=== PATIENT | male | born 1955 | race African-American/Black ===

== ENCOUNTER 2018-09-20 11:23 | Inpatient (IN) ==
[2018-09-20] MEDS ORDERED: LABETALOL 20 MG/4 ML SYRINGE IV STA (13:14)
[2018-09-20] MEDS ORDERED: LABETALOL 100 MG/20 ML VIAL IV ONE (13:43)
[2018-09-20 14:08] LABS: Basophils # 0.1 10*3/uL (0.0-0.2); Basophils % 0.5 % (0.0-0.8); Eosinophils # 0.1 10*3/uL (0.0-0.87); Eosinophils % 1.2 % (0.00-10.9); Hemoglobin 14.1 GM/DL (14.0-18.0); Immature Granulocytes % 0.5 %; Immature Granulocytes Absolute 0.05 #; Lymphocytes % 29.8 % (21.2-54.2); Mean Corpuscular HGB Conc 31.3 GM/DL (32-36); Mean Corpuscular Volume 83.8 FL (87-102); Mean Platelet Volume 11.5 FL (9.6-12.0); Monocytes % 6.5 % (1.7-12.7); Neutrophils % 61.5 % (38.7-73.9); Platelet Count 296 T/CUMM (130-400); Red Blood Count 5.37 MC/CUMM (3.8-5.5); Red Cell Distribution Width 14.2 % (9.3-17.3); White Blood Count 9.9 T/CUMM (4-12)
[2018-09-20 14:32] LABS: Calcium 7.1 MG/DL (8.5-10.1); Osmolality,Calculated 299.5 MOS/KG (273-304)
[2018-09-20] MEDS ORDERED: cloNIDine 0.1 MG TABLET ONE (15:04)
[2018-09-20] MEDS ORDERED: cloNIDine 0.1 MG TABLET PO STA (15:07)
[2018-09-20] MEDS ORDERED: LACTATED RINGERS 500 ML IV ONE (16:33)
[2018-09-20] MEDS ORDERED: INSULIN REGULAR 100 UNIT/ML IV ONE (16:35)
[2018-09-20] MEDS ORDERED: INSULIN REGULAR 100 UNIT/ML ONE (16:46)
[2018-09-20 16:48] LABS: Alanine Aminotransferase 23 U/L (16-61); Albumin 3.1 G/DL (3.4-5.0); Alkaline Phosphatase 148 U/L (45-117); Aspartate Amino Transferase 18 U/L (0-37); Bilirubin,Total < 0.39 MG/DL (0.2-1.0); Blood Urea Nitrogen 43 MG/DL (7-18); Glucose 327 MG/DL (74-106); Osmolality,Calculated 304.3 MOS/KG (273-304); Total Protein 7.3 G/DL (6.4-8.3)
[2018-09-20 17:33] LABS: Apearance,Urine CLEAR (Clear); Bacteria,Urine Occasional /HPF (Few); Bilirubin,Urine Negative (Negative); Blood, Urine Small mg/dL (Negative); Glucose,Urine (UA) >=500 mg/dL (Negative); Ketones,Urine Negative (Negative); Nitrite,Urine Negative (Negative); Protein,Urine 100 MG/DL; RBC,Urine 2 /HPF (0-4); Urine Color Straw (Yellow); Urine Urobilinogen < 2.0 EU/DL (0.2-1.0)
[2018-09-20] MEDS ORDERED: DEXTROSE 50% 25 GM/50 ML VIAL IV PRN (17:37)
[2018-09-20] MEDS ORDERED: ONDANSETRON 4 MG/2 ML VIAL IV PRN (17:37)
[2018-09-20] MEDS ORDERED: ACETAMINOPHEN 325 MG TABLET PO PRN (17:37)
[2018-09-20] MEDS ORDERED: GLUCAGON 1 MG VIAL IM PRN (17:37)
[2018-09-20] MEDS ORDERED: MAGNESIUM HYDROXIDE SUSP 30 ML UDCUP PO PRN (17:37)
[2018-09-20] MEDS ORDERED: CALCIUM GLUCONATE 1,000 MG in SODIUM CHLORIDE 0.9% 100 ML IV ONE (17:50)
[2018-09-20 18:01] LABS: Barbiturates Screen,Urine Negative (Negative); Benzodiazepines Screen,Urine Negative (Negative); Cannabinoid Screen,Urine Negative (Negative); Opiate Screen,Urine Negative (Negative); Phencyclidine Screen,Urine Negative (Negative)
[2018-09-20] MEDS ORDERED: CALCIUM (CITRATE) 200 MG TABLET PO SCH (21:00)
[2018-09-20] MEDS: DOCUSATE SODIUM 100 MG CAPSULE PO SCH (21:38)
[2018-09-20] MEDS: INSULIN REGULAR 100 UNIT/ML SUBCUT SCH (22:16)
[2018-09-21 03:34] LABS: Basophils # 0.1 10*3/uL (0.0-0.2); Basophils % 0.8 % (0.0-0.8); Eosinophils # 0.1 10*3/uL (0.0-0.87); Eosinophils % 1.5 % (0.00-10.9); Hematocrit 45.1 VOL% (42.0-52.0); Hemoglobin 14.3 GM/DL (14.0-18.0); Immature Granulocytes % 0.1 %; Immature Granulocytes Absolute 0.01 #; Lymphocytes # 2.3 10*3/uL (1.4-4.0); Lymphocytes % 29.9 % (21.2-54.2); Mean Corpuscular HGB Conc 31.7 GM/DL (32-36); Mean Corpuscular Volume 83.5 FL (87-102); Mean Platelet Volume 11.9 FL (9.6-12.0); Monocytes % 8.1 % (1.7-12.7); Neutrophils % 59.6 % (38.7-73.9); Platelet Count 292 T/CUMM (130-400); Red Cell Distribution Width 14.4 % (9.3-17.3); White Blood Count 7.8 T/CUMM (4-12)
[2018-09-21 04:13] LABS: Calcium 7.8 MG/DL (8.5-10.1); Osmolality,Calculated 297.8 MOS/KG (273-304); Thyroid Stimulating Hormone 2.3 uIU/ml (0.358-3.74); Uric Acid 6.6 MG/DL (3.5-7.2)
[2018-09-21] MEDS: INSULIN REGULAR 100 UNIT/ML SUBCUT SCH ×3 (09:15→21:51)
[2018-09-21] MEDS: CALCIUM (CITRATE) 200 MG TABLET PO SCH ×2 (09:36→21:52)
[2018-09-21] MEDS: DOCUSATE SODIUM 100 MG CAPSULE PO SCH ×2 (09:36→21:50)
[2018-09-21] MEDS: PANTOPRAZOLE 40 MG TABLET PO SCH (09:37)
[2018-09-22 05:41] LABS: Basophils % 0.6 % (0.0-0.8); Eosinophils # 0.2 10*3/uL (0.0-0.87); Eosinophils % 2.6 % (0.00-10.9); Hematocrit 43.9 VOL% (42.0-52.0); Hemoglobin 13.7 GM/DL (14.0-18.0); Immature Granulocytes % 0.3 %; Immature Granulocytes Absolute 0.02 #; Lymphocytes # 2.5 10*3/uL (1.4-4.0); Mean Corpuscular HGB Conc 31.2 GM/DL (32-36); Mean Corpuscular Volume 84.3 FL (87-102); Monocytes % 9.5 % (1.7-12.7); Platelet Count 297 T/CUMM (130-400); Red Blood Count 5.21 MC/CUMM (3.8-5.5); Red Cell Distribution Width 14.2 % (9.3-17.3); White Blood Count 7.3 T/CUMM (4-12)
[2018-09-22 05:57] LABS: Calcium 7.7 MG/DL (8.5-10.1); Osmolality,Calculated 298.1 MOS/KG (273-304)
[2018-09-22] MEDS: INSULIN REGULAR 100 UNIT/ML SUBCUT SCH ×4 (09:19→21:08)
[2018-09-22] MEDS: CALCIUM (CITRATE) 200 MG TABLET PO SCH ×2 (09:20→20:53)
[2018-09-22] MEDS: PANTOPRAZOLE 40 MG TABLET PO SCH (09:20)
[2018-09-22] MEDS: DOCUSATE SODIUM 100 MG CAPSULE PO SCH ×2 (09:20→20:53)
[2018-09-23] MEDS: LINACLOTIDE 145 MCG CAPSULE PO SCH ×3 (01:09→20:47)
[2018-09-23 05:28] LABS: Basophils % 0.5 % (0.0-0.8); Eosinophils # 0.2 10*3/uL (0.0-0.87); Eosinophils % 2.3 % (0.00-10.9); Hematocrit 47.5 VOL% (42.0-52.0); Hemoglobin 14.8 GM/DL (14.0-18.0); Immature Granulocytes % 0.4 %; Immature Granulocytes Absolute 0.03 #; Lymphocytes # 2.7 10*3/uL (1.4-4.0); Mean Corpuscular HGB Conc 31.2 GM/DL (32-36); Mean Corpuscular Volume 83.8 FL (87-102); Mean Platelet Volume 12.2 FL (9.6-12.0); Monocytes % 6.8 % (1.7-12.7); Platelet Count 294 T/CUMM (130-400); Red Blood Count 5.67 MC/CUMM (3.8-5.5); White Blood Count 7.4 T/CUMM (4-12)
[2018-09-23 05:59] LABS: Osmolality,Calculated 292.5 MOS/KG (273-304)
[2018-09-23] MEDS: INSULIN GLARGINE 100 UNIT/ML SUBCUT SCH (08:31)
[2018-09-23] MEDS: INSULIN REGULAR 100 UNIT/ML SUBCUT SCH ×4 (08:31→20:46)
[2018-09-23] MEDS: CALCIUM (CITRATE) 200 MG TABLET PO SCH ×2 (08:32→20:45)
[2018-09-23] MEDS: DULoxetine 30 MG CAPSULE PO SCH (08:33)
[2018-09-23] MEDS: DOCUSATE SODIUM 100 MG CAPSULE PO SCH ×2 (08:33→20:45)
[2018-09-23] MEDS: PANTOPRAZOLE 40 MG TABLET PO SCH (08:34)
[2018-09-23] MEDS: hydroCHLOROthiazide 12.5 MG CAPSULE PO SCH (08:34)
[2018-09-23] MEDS ORDERED: ROSUVASTATIN 10 MG TABLET PO SCH (21:00)
[2018-09-24] MEDS ORDERED: amLODIPine 10 MG TABLET PO ONE (03:50)
[2018-09-24 06:07] LABS: Osmolality,Calculated 288.5 MOS/KG (273-304)
[2018-09-24] MEDS ORDERED: hydrALAZINE 20 MG/1 ML VIAL IV ONE (07:10)
[2018-09-24] MEDS ORDERED: INSULIN LISPRO 100 UNIT/ML SUBCUT SCH (07:30)
[2018-09-24] MEDS: INSULIN GLARGINE 100 UNIT/ML SUBCUT SCH (08:35)
[2018-09-24] MEDS: INSULIN REGULAR 100 UNIT/ML SUBCUT SCH (08:36)
[2018-09-24] MEDS: hydroCHLOROthiazide 12.5 MG CAPSULE PO SCH (08:38)
[2018-09-24] MEDS: DOCUSATE SODIUM 100 MG CAPSULE PO SCH (08:38)
[2018-09-24] MEDS: DULoxetine 30 MG CAPSULE PO SCH (08:38)
[2018-09-24] MEDS: CALCIUM (CITRATE) 200 MG TABLET PO SCH (08:38)
[2018-09-24] MEDS: LINACLOTIDE 145 MCG CAPSULE PO SCH (08:39)
[2018-09-24] MEDS: PANTOPRAZOLE 40 MG TABLET PO SCH (08:39)
[2018-09-24 09:54] VITALS: BP 147/84
== END 2018-09-24 12:20 | disposition home or self-care (01) | DRG 78 ==
LOC: N.ED 11:23 → N.EDINP 17:37 → N.TELEN 18:21
PROVIDERS: ADMIT Internal Medicine; ATTEND Internal Medicine

== ENCOUNTER 2019-02-09 10:29 | Observation (INO) ==
[2019-02-09] MEDS ORDERED: FUROSEMIDE 40 MG/4 ML VIAL IV STA (10:50)
[2019-02-09] MEDS ORDERED: ALBUTEROL/IPRATROPIUM 3 ML NEB RESP TX STA (10:50)
[2019-02-09] MEDS ORDERED: hydrALAZINE 20 MG/1 ML VIAL IV STA (10:54)
[2019-02-09 12:25] LABS: Basophils # 0.1 10*3/uL (0.0-0.2); Basophils % 0.6 % (0.0-0.8); Eosinophils # 0.1 10*3/uL (0.0-0.87); Hematocrit 44.3 VOL% (42.0-52.0); Hemoglobin 14.2 GM/DL (14.0-18.0); Immature Granulocytes % 0.4 %; Immature Granulocytes Absolute 0.05 #; Lymphocytes # 3.3 10*3/uL (1.4-4.0); Lymphocytes % 28.8 % (21.2-54.2); Mean Corpuscular HGB Conc 32.1 GM/DL (32-36); Mean Corpuscular Volume 83.4 FL (87-102); Mean Platelet Volume 12.2 FL (9.6-12.0); Monocytes % 6.9 % (1.7-12.7); Neutrophils % 62.3 % (38.7-73.9); Platelet Count 249 T/CUMM (130-400); Red Blood Count 5.31 MC/CUMM (3.8-5.5); Red Cell Distribution Width 13.8 % (9.3-17.3); White Blood Count 11.5 T/CUMM (4-12)
[2019-02-09 12:36] LABS: PT Patient Result 10.7 SECS (9.6-12.2); Partial Thromboplastin Time 28.2 SECS (20.8-36.0)
[2019-02-09 12:57] LABS: Alanine Aminotransferase 30 U/L (16-61); Albumin 2.9 G/DL (3.4-5.0); Alkaline Phosphatase 188 U/L (45-117); Aspartate Amino Transferase 24 U/L (0-37); Bilirubin,Total < 0.39 MG/DL (0.2-1.0); Blood Urea Nitrogen 59 MG/DL (7-18); Calcium 6.8 MG/DL (8.5-10.1); Estimated Glom Filtration Rate 16 ML/MIN; Osmolality,Calculated 305.5 MOS/KG (273-304); Total Protein 7.6 G/DL (6.4-8.3); Troponin I 0.021 NG/ML (0.00-0.045)
[2019-02-09 13:00] LABS: Glucose 553 MG/DL (74-106)
[2019-02-09] MEDS ORDERED: INSULIN REGULAR 100 UNIT/ML SUBCUT STA (13:07)
[2019-02-09] MEDS ORDERED: SODIUM CHLORIDE 0.9% 1,000 ML IV STA (13:08)
[2019-02-09] MEDS ORDERED: LINACLOTIDE 145 MCG CAPSULE PO PRN (13:18)
[2019-02-09] MEDS ORDERED: ONDANSETRON 4 MG/2 ML VIAL IV PRN (13:19)
[2019-02-09] MEDS ORDERED: DEXTROSE 50% 25 GM/50 ML VIAL IV PRN (13:19)
[2019-02-09] MEDS ORDERED: GLUCAGON 1 MG VIAL IM PRN (13:19)
[2019-02-09] MEDS ORDERED: SODIUM CHLORIDE 0.9% 1,000 ML IV SCH (13:30)
[2019-02-09] MEDS: cloNIDine 0.1 MG TABLET PO SCH ×2 (15:31→21:17)
[2019-02-09 15:40] LABS: Calcium 6.9 MG/DL (8.5-10.1); Osmolality,Calculated 303.2 MOS/KG (273-304)
[2019-02-09] MEDS: INSULIN LISPRO 100 UNIT/ML SUBCUT SCH (16:47)
[2019-02-09] MEDS: INSULIN REGULAR 100 UNIT/ML SUBCUT SCH ×2 (16:48→21:17)
[2019-02-09] MEDS ORDERED: hydrALAZINE 20 MG/1 ML VIAL IV PRN (17:26)
[2019-02-09] MEDS: SODIUM CHLORIDE 0.9% 1,000 ML IV SCH (18:54)
[2019-02-09] MEDS: INSULIN GLARGINE 100 UNIT/ML SUBCUT SCH (21:17)
[2019-02-09] MEDS: carvediloL 12.5 MG TABLET PO SCH (21:17)
[2019-02-10] MEDS: SODIUM CHLORIDE 0.9% 1,000 ML IV SCH ×3 (02:42→23:48)
[2019-02-10 05:20] LABS: Calcium 7.2 MG/DL (8.5-10.1); Osmolality,Calculated 295.3 MOS/KG (273-304)
[2019-02-10] MEDS: INSULIN REGULAR 100 UNIT/ML SUBCUT SCH ×4 (08:25→20:29)
[2019-02-10] MEDS: cloNIDine 0.1 MG TABLET PO SCH ×3 (09:26→20:28)
[2019-02-10] MEDS: INSULIN LISPRO 100 UNIT/ML SUBCUT SCH ×3 (09:26→16:51)
[2019-02-10] MEDS: INSULIN GLARGINE 100 UNIT/ML SUBCUT SCH ×2 (09:26→20:28)
[2019-02-10] MEDS: carvediloL 12.5 MG TABLET PO SCH ×2 (09:26→20:28)
[2019-02-10 10:25] LABS: Troponin I 0.341 NG/ML (0.00-0.045)
[2019-02-10] MEDS ORDERED: ALBUTEROL/IPRATROPIUM 3 ML NEB RESP TX PRN (12:16)
[2019-02-10 12:47] LABS: Risk Ratio 3.16; VLDL CHOLESTEROL 45.8 MG/DL
[2019-02-11] MEDS: INSULIN REGULAR 100 UNIT/ML SUBCUT SCH ×2 (08:03→12:18)
[2019-02-11] MEDS: INSULIN GLARGINE 100 UNIT/ML SUBCUT SCH (08:46)
[2019-02-11] MEDS: cloNIDine 0.1 MG TABLET PO SCH ×2 (08:46→15:19)
[2019-02-11] MEDS: INSULIN LISPRO 100 UNIT/ML SUBCUT SCH ×2 (08:46→12:18)
[2019-02-11] MEDS ORDERED: carvediloL 25 MG TABLET PO SCH (09:00)
[2019-02-11] MEDS ORDERED: ASPIRIN EC 81 MG TABLET PO SCH (11:00)
[2019-02-11 15:20] VITALS: BP 130/70
== END 2019-02-11 15:45 | disposition home health service (06) ==
LOC: N.ED 10:29 → N.EDINP 13:17 → INTOOBSV 13:17 → N.TELEN 13:39
PROVIDERS: ADMIT Family Medicine; ATTEND Family Medicine

== ENCOUNTER 2019-02-12 09:22 | Observation (INO) ==
[2019-02-12] MEDS ORDERED: FUROSEMIDE 100 MG/10 ML VIAL IV STA (09:50)
[2019-02-12 10:34] LABS: Basophils # 0.1 10*3/uL (0.0-0.2); Basophils % 0.6 % (0.0-0.8); Eosinophils # 0.2 10*3/uL (0.0-0.87); Eosinophils % 2.1 % (0.00-10.9); Hematocrit 44.7 VOL% (42.0-52.0); Hemoglobin 14.1 GM/DL (14.0-18.0); Immature Granulocytes % 0.6 %; Immature Granulocytes Absolute 0.06 #; Lymphocytes # 2.8 10*3/uL (1.4-4.0); Lymphocytes % 28.7 % (21.2-54.2); Mean Corpuscular HGB Conc 31.5 GM/DL (32-36); Mean Corpuscular Volume 84.2 FL (87-102); Mean Platelet Volume 12.7 FL (9.6-12.0); Monocytes % 6.2 % (1.7-12.7); Neutrophils % 61.8 % (38.7-73.9); Platelet Count 254 T/CUMM (130-400); Red Blood Count 5.31 MC/CUMM (3.8-5.5); Red Cell Distribution Width 14.4 % (9.3-17.3); White Blood Count 9.9 T/CUMM (4-12)
[2019-02-12 10:55] LABS: Alanine Aminotransferase 25 U/L (16-61); Albumin 3.1 G/DL (3.4-5.0); Alkaline Phosphatase 157 U/L (45-117); Aspartate Amino Transferase 19 U/L (0-37); Bilirubin,Total < 0.39 MG/DL (0.2-1.0); Blood Urea Nitrogen 50 MG/DL (7-18); Calcium 6.8 MG/DL (8.5-10.1); Estimated Glom Filtration Rate 17 ML/MIN; Glucose 125 MG/DL (74-106); Total Protein 7.4 G/DL (6.4-8.3)
[2019-02-12 11:00] LABS: Hypochromasia 1+; Platelet Estimate Adequate
[2019-02-12] MEDS ORDERED: ONDANSETRON 4 MG/2 ML VIAL IV PRN (12:48)
[2019-02-12] MEDS ORDERED: ACETAMINOPHEN 325 MG TABLET PO PRN (12:48)
[2019-02-12] MEDS ORDERED: LINACLOTIDE 145 MCG CAPSULE PO PRN (16:16)
[2019-02-12] MEDS ORDERED: DEXTROSE 10% 25 GM/250 ML BAG IV PRN (16:18)
[2019-02-12] MEDS ORDERED: GLUCAGON 1 MG VIAL IM PRN (16:18)
[2019-02-12] MEDS ORDERED: ALBUTEROL/IPRATROPIUM 3 ML NEB RESP TX PRN (16:35)
[2019-02-12] MEDS ORDERED: cefTRIAXone 1,000 MG in SYRINGE 1 EACH IV STA (16:35)
[2019-02-12] MEDS: methylPREDNISolone SOD SUC 40 MG/1 ML VIAL IV SCH (17:58)
[2019-02-12] MEDS: hydrALAZINE 20 MG/1 ML VIAL IV PRN (17:58)
[2019-02-12] MEDS: INSULIN LISPRO 100 UNIT/ML SUBCUT SCH ×3 (17:59→20:33)
[2019-02-12] MEDS: INSULIN GLARGINE 100 UNIT/ML SUBCUT SCH (20:34)
[2019-02-12] MEDS: cloNIDine 0.1 MG TABLET PO SCH (20:35)
[2019-02-12] MEDS: DOCUSATE SODIUM 100 MG CAPSULE PO SCH (20:35)
[2019-02-12] MEDS: CARVEDILOL 25 MG TABLET PO SCH (20:35)
[2019-02-13] MEDS: hydrALAZINE 20 MG/1 ML VIAL IV PRN ×2 (02:07→13:26)
[2019-02-13] MEDS: methylPREDNISolone SOD SUC 40 MG/1 ML VIAL IV SCH ×2 (04:33→17:13)
[2019-02-13 05:35] LABS: Calcium 6.4 MG/DL (8.5-10.1); Osmolality,Calculated 302.4 MOS/KG (273-304)
[2019-02-13] MEDS: INSULIN LISPRO 100 UNIT/ML SUBCUT SCH ×7 (08:36→21:21)
[2019-02-13] MEDS: INSULIN GLARGINE 100 UNIT/ML SUBCUT SCH ×2 (08:36→21:20)
[2019-02-13] MEDS: DOCUSATE SODIUM 100 MG CAPSULE PO SCH ×2 (08:37→21:20)
[2019-02-13] MEDS: PANTOPRAZOLE 40 MG TABLET PO SCH (08:37)
[2019-02-13] MEDS: cefTRIAXone 1,000 MG in SYRINGE 1 EACH IV SCH (08:37)
[2019-02-13] MEDS: CARVEDILOL 25 MG TABLET PO SCH ×2 (08:37→21:20)
[2019-02-13] MEDS: cloNIDine 0.1 MG TABLET PO SCH ×3 (08:37→21:20)
[2019-02-13] MEDS: ASPIRIN EC 81 MG TABLET PO SCH (08:37)
[2019-02-13 09:31] LABS: Calcium 6.6 MG/DL (8.5-10.1); Osmolality,Calculated 298.7 MOS/KG (273-304)
[2019-02-14] MEDS: methylPREDNISolone SOD SUC 40 MG/1 ML VIAL IV SCH (05:15)
[2019-02-14 06:22] LABS: Calcium 6.5 MG/DL (8.5-10.1); Osmolality,Calculated 301.4 MOS/KG (273-304)
[2019-02-14] MEDS: DOCUSATE SODIUM 100 MG CAPSULE PO SCH (09:26)
[2019-02-14] MEDS: PANTOPRAZOLE 40 MG TABLET PO SCH (09:26)
[2019-02-14] MEDS: cloNIDine 0.1 MG TABLET PO SCH (09:26)
[2019-02-14] MEDS: CARVEDILOL 25 MG TABLET PO SCH (09:26)
[2019-02-14] MEDS: ASPIRIN EC 81 MG TABLET PO SCH (09:26)
[2019-02-14] MEDS: INSULIN GLARGINE 100 UNIT/ML SUBCUT SCH (09:27)
[2019-02-14] MEDS: INSULIN LISPRO 100 UNIT/ML SUBCUT SCH ×2 (09:28→09:47)
[2019-02-14] MEDS: cefTRIAXone 1,000 MG in SYRINGE 1 EACH IV SCH (09:46)
[2019-02-14 11:31] VITALS: BP 141/87
== END 2019-02-14 15:39 | disposition home health service (06) ==
LOC: EDBD → EDUNIT# → N.EDINP 09:22 → N.ED 09:22 → N.ICU 16:13 → N.TELEN 02-13 13:42
PROVIDERS: ADMIT Family Medicine; ATTEND Family Medicine

== ENCOUNTER 2019-08-27 13:19 | Inpatient (IN) ==
[~2019-08-27 13:19] MED LIST: HEPARIN 10,000 UNIT/10 ML VIAL IV SCH
[2019-08-27] MEDS ORDERED: LABETALOL 20 MG/4 ML SYRINGE IV ONE (14:10)
[2019-08-27] MEDS ORDERED: FUROSEMIDE 100 MG/10 ML VIAL ONE (14:11)
[2019-08-27] MEDS ORDERED: FUROSEMIDE 40 MG/4 ML VIAL IV STA ×2 (14:17→15:51)
[2019-08-27] MEDS ORDERED: LABETALOL 20 MG/4 ML SYRINGE IV STA ×2 (14:18→15:51)
[2019-08-27 14:26] LABS: Partial Thromboplastin Time 31.4 SECS (23.9-33.8)
[2019-08-27 14:31] LABS: Albumin 3.2 G/DL (3.4-5.0); Bilirubin,Total 0.4 MG/DL (0.2-1.0); CKMB % 1.1 %; Calcium 6.3 MG/DL (8.5-10.1); Osmolality,Calculated 291.8 MOS/KG (273-304); Total Protein 8.3 G/DL (6.4-8.3); Troponin I 0.017 NG/ML (0.00-0.045)
[2019-08-27] MEDS ORDERED: cloNIDine 0.1 MG TABLET ONE (15:16)
[2019-08-27 15:18] LABS: Basophils # 0.1 10*3/uL (0.0-0.2); Basophils % 0.8 % (0.0-0.8); Eosinophils # 0.2 10*3/uL (0.0-0.87); Eosinophils % 1.2 % (0.00-10.9); Hematocrit 43.8 VOL% (42.0-52.0); Hemoglobin 13.6 GM/DL (14.0-18.0); Immature Granulocytes % 0.6 %; Immature Granulocytes Absolute 0.08 #; Lymphocytes # 3.5 10*3/uL (1.4-4.0); Lymphocytes % 26.5 % (21.2-54.2); Mean Corpuscular HGB Conc 31.1 GM/DL (32-36); Mean Corpuscular Volume 86.4 FL (87-102); Mean Platelet Volume 12.4 FL (9.6-12.0); Monocytes % 7.9 % (1.7-12.7); Platelet Count 332 T/CUMM (130-400); Red Blood Count 5.07 MC/CUMM (3.8-5.5); Red Cell Distribution Width 14.9 % (9.3-17.3); White Blood Count 13.4 T/CUMM (4-12)
[2019-08-27] MEDS ORDERED: cloNIDine 0.1 MG TABLET PO STA (15:19)
[2019-08-27] MEDS ORDERED: PNEUMOCOCCAL VACCINE (13 VALENT) 0.5 ML SYRINGE IM ONE (17:13)
[2019-08-27] MEDS ORDERED: LINACLOTIDE 145 MCG CAPSULE PO PRN (18:50)
[2019-08-27] MEDS ORDERED: ALBUTEROL 2.5 MG/3 ML NEB RESP TX PRN (18:50)
[2019-08-27] MEDS ORDERED: DEXTROSE 10% 250 ML BAG IV PRN (18:52)
[2019-08-27] MEDS ORDERED: GLUCAGON 1 MG VIAL IM PRN (18:52)
[2019-08-27] MEDS ORDERED: MAGNESIUM SULF RIDER 4 GM in PREMIX 1 EACH IV PRN (18:52)
[2019-08-27] MEDS ORDERED: MAGNESIUM SULF RIDER 2 GM in PREMIX 1 EACH IV PRN (18:52)
[2019-08-27] MEDS ORDERED: hydrALAZINE 20 MG/1 ML VIAL IV PRN (18:54)
[2019-08-27] MEDS: cloNIDine 0.1 MG TABLET PO SCH (21:32)
[2019-08-27] MEDS: INSULIN GLARGINE 100 UNIT/ML SUBCUT SCH (21:32)
[2019-08-27] MEDS: carvediloL 25 MG TABLET PO SCH (21:32)
[2019-08-27] MEDS: PIPERACILLIN/TAZOBACTAM 3,375 MG in SODIUM CHLORIDE 0.9% 100 ML IV SCH (21:37)
[2019-08-27] MEDS: INSULIN LISPRO 100 UNIT/ML SUBCUT SCH (21:41)
[2019-08-28 06:47] LABS: Basophils # 0.1 10*3/uL (0.0-0.2); Basophils % 0.7 % (0.0-0.8); Eosinophils # 0.1 10*3/uL (0.0-0.87); Eosinophils % 1.4 % (0.00-10.9); Hematocrit 39.4 VOL% (42.0-52.0); Hemoglobin 12.1 GM/DL (14.0-18.0); Immature Granulocytes % 0.7 %; Immature Granulocytes Absolute 0.06 #; Lymphocytes # 1.9 10*3/uL (1.4-4.0); Lymphocytes % 22.2 % (21.2-54.2); Mean Corpuscular HGB Conc 30.7 GM/DL (32-36); Mean Corpuscular Volume 86.6 FL (87-102); Mean Platelet Volume 12.4 FL (9.6-12.0); Monocytes % 8.6 % (1.7-12.7); Neutrophils % 66.4 % (38.7-73.9); Platelet Count 289 T/CUMM (130-400); Red Blood Count 4.55 MC/CUMM (3.8-5.5); Red Cell Distribution Width 14.7 % (9.3-17.3); White Blood Count 8.6 T/CUMM (4-12)
[2019-08-28 07:14] LABS: Calcium 6.1 MG/DL (8.5-10.1); Osmolality,Calculated 294.4 MOS/KG (273-304)
[2019-08-28] MEDS ORDERED: ceFAZolin 1,000 MG in SYRINGE 1 EACH IV ONE (07:21)
[2019-08-28] MEDS: INSULIN LISPRO 100 UNIT/ML SUBCUT SCH ×4 (07:30→21:22)
[2019-08-28] MEDS ORDERED: SODIUM CHLORIDE 0.9% 250 ML IV SCH (08:30)
[2019-08-28] MEDS ORDERED: LIDOCAINE 1%/EPI INJ 20 ML VIAL ONE (09:19)
[2019-08-28] MEDS ORDERED: BUPIVACAINE MPF 0.25% 30 ML VIAL ONE (09:19)
[2019-08-28] MEDS ORDERED: HEPARIN 5,000 UNIT/1 ML VIAL ONE (09:22)
[2019-08-28] MEDS ORDERED: DEXMEDETOMIDINE 200 MCG/2 ML VIAL ONE (09:55)
[2019-08-28] MEDS ORDERED: MIDAZOLAM 2 MG/2 ML VIAL ONE (09:55)
[2019-08-28] MEDS: INSULIN GLARGINE 100 UNIT/ML SUBCUT SCH ×2 (11:07→21:15)
[2019-08-28] MEDS: FUROSEMIDE 40 MG/4 ML VIAL IV SCH (11:09)
[2019-08-28] MEDS: cloNIDine 0.1 MG TABLET PO SCH ×3 (11:13→21:15)
[2019-08-28] MEDS: carvediloL 25 MG TABLET PO SCH ×2 (11:13→17:00)
[2019-08-28] MEDS: hydroCHLOROthiazide 12.5 MG CAPSULE PO SCH (11:14)
[2019-08-28] MEDS: PIPERACILLIN/TAZOBACTAM 3,375 MG in SODIUM CHLORIDE 0.9% 100 ML IV SCH ×2 (11:14→21:15)
[2019-08-28 11:46] LABS: Hepatitis B Core IgM Quant 0.07 Index; Hepatitis B Surface Ag Quant < 0.10 Index; Hepatitis B Surface Ag Result Negative (Negative); Hepatitis C Virus Ab Quant > 11.00 Index; Hepatitis C Virus Ab Result Positive (Negative)
[2019-08-28] MEDS ORDERED: ACETAMINOPHEN 325 MG TABLET PO PRN (16:23)
[2019-08-28] MEDS ORDERED: traMADol 50 MG TABLET PO PRN (16:24)
[2019-08-29 06:00] LABS: Basophils # 0.1 10*3/uL (0.0-0.2); Basophils % 0.7 % (0.0-0.8); Eosinophils # 0.2 10*3/uL (0.0-0.87); Eosinophils % 2.5 % (0.00-10.9); Hematocrit 39.7 VOL% (42.0-52.0); Hemoglobin 12.5 GM/DL (14.0-18.0); Immature Granulocytes % 0.4 %; Immature Granulocytes Absolute 0.04 #; Lymphocytes # 2.3 10*3/uL (1.4-4.0); Mean Corpuscular HGB Conc 31.5 GM/DL (32-36); Mean Corpuscular Volume 83.9 FL (87-102); Mean Platelet Volume 12.2 FL (9.6-12.0); Monocytes % 9.7 % (1.7-12.7); Neutrophils % 62.7 % (38.7-73.9); Platelet Count 268 T/CUMM (130-400); Red Blood Count 4.73 MC/CUMM (3.8-5.5); Red Cell Distribution Width 14.4 % (9.3-17.3); White Blood Count 9.7 T/CUMM (4-12)
[2019-08-29] MEDS: INSULIN LISPRO 100 UNIT/ML SUBCUT SCH ×3 (08:13→17:38)
[2019-08-29] MEDS: FUROSEMIDE 40 MG/4 ML VIAL IV SCH (08:57)
[2019-08-29] MEDS ORDERED: MULTIVITAMIN (BEROCCA) TABLET PO SCH (09:00)
[2019-08-29] MEDS: PIPERACILLIN/TAZOBACTAM 3,375 MG in SODIUM CHLORIDE 0.9% 100 ML IV SCH (09:01)
[2019-08-29] MEDS: hydroCHLOROthiazide 12.5 MG CAPSULE PO SCH (09:03)
[2019-08-29] MEDS: cloNIDine 0.1 MG TABLET PO SCH ×2 (09:03→17:00)
[2019-08-29] MEDS: INSULIN GLARGINE 100 UNIT/ML SUBCUT SCH (09:03)
[2019-08-29] MEDS: carvediloL 25 MG TABLET PO SCH ×2 (09:03→16:59)
[2019-08-29 09:32] LABS: Calcium 6.7 MG/DL (8.5-10.1)
[2019-08-29 09:33] LABS: Osmolality,Calculated 284.7 MOS/KG (273-304)
[2019-08-29 18:18] VITALS: BP 169/96
== END 2019-08-29 19:10 | disposition home or self-care (01) | DRG 292 ==
LOC: N.ED 13:19 → N.EDINP 15:55 → N.TELES 16:22
PROVIDERS: ADMIT Family Medicine; ATTEND Family Medicine

== ENCOUNTER 2019-11-17 17:28 | Observation (INO) ==
[2019-11-17] MEDS ORDERED: LINACLOTIDE 145 MCG CAPSULE PO PRN (22:05)
[2019-11-17] MEDS: cloNIDine 0.1 MG TABLET PO SCH (23:20)
[2019-11-17] MEDS: ASPIRIN EC 81 MG TABLET PO SCH (23:20)
[2019-11-18] MEDS ORDERED: GLUCAGON 1 MG VIAL IM PRN (00:35)
[2019-11-18] MEDS ORDERED: DEXTROSE 50% 25 GM/50 ML VIAL IV PRN (00:35)
[2019-11-18] MEDS: ACETAMINOPHEN 325 MG TABLET PO PRN ×2 (01:55→08:49)
[2019-11-18] MEDS: carvediloL 25 MG TABLET PO SCH ×2 (08:48→17:20)
[2019-11-18] MEDS: MECLIZINE 25 MG TABLET PO SCH ×4 (08:48→21:24)
[2019-11-18] MEDS: cloNIDine 0.1 MG TABLET PO SCH ×3 (08:48→21:25)
[2019-11-18] MEDS: INSULIN LISPRO 100 UNIT/ML SUBCUT SCH ×4 (08:49→21:25)
[2019-11-18 10:32] LABS: Basophils # 0.1 10*3/uL (0.0-0.2); Basophils % 0.7 % (0.0-0.8); Eosinophils # 0.2 10*3/uL (0.0-0.87); Eosinophils % 1.8 % (0.00-10.9); Hematocrit 37.7 VOL% (42.0-52.0); Hemoglobin 11.7 GM/DL (14.0-18.0); Immature Granulocytes % 0.6 %; Immature Granulocytes Absolute 0.06 #; Lymphocytes # 2.8 10*3/uL (1.4-4.0); Lymphocytes % 27.7 % (21.2-54.2); Mean Corpuscular Volume 86.5 FL (87-102); Mean Platelet Volume 10.9 FL (9.6-12.0); Monocytes % 7.5 % (1.7-12.7); Neutrophils % 61.7 % (38.7-73.9); Platelet Count 336 T/CUMM (130-400); Red Blood Count 4.36 MC/CUMM (3.8-5.5); Red Cell Distribution Width 13.5 % (9.3-17.3)
[2019-11-18 10:41] LABS: INR 1.1; PT Patient Result 11.4 SECS (9.8-11.9)
[2019-11-18 10:53] LABS: Calcium 7.9 MG/DL (8.5-10.1); Osmolality,Calculated 283.4 MOS/KG (273-304)
[2019-11-18] MEDS ORDERED: fentaNYL 100 MCG/2 ML VIAL IV ONE (11:53)
[2019-11-18] MEDS ORDERED: MIDAZOLAM 2 MG/2 ML VIAL IV ONE (11:53)
[2019-11-18] MEDS ORDERED: HEPARIN/NACL 0.9% 2 UNITS/ML 2,000 ML IV ONE (12:31)
[2019-11-18] MEDS ORDERED: DIAZEPAM 5 MG TABLET PO ONE (13:30)
[2019-11-18] MEDS ORDERED: ceFAZolin 1,000 MG in SYRINGE 1 EACH IV ONE ×2 (13:30→14:30)
[2019-11-18] MEDS ORDERED: MORPHINE 4 MG/1 ML VIAL IV PRN (14:15)
[2019-11-18] MEDS ORDERED: diphenhydrAMINE 50 MG/1 ML VIAL ONE (14:52)
[2019-11-18] MEDS ORDERED: diphenhydrAMINE 50 MG/1 ML VIAL IV ONE (14:59)
[2019-11-18] MEDS ORDERED: MIDAZOLAM 2 MG/2 ML VIAL ONE (14:59)
[2019-11-18] MEDS ORDERED: hydrALAZINE 20 MG/1 ML VIAL IV PRN (17:19)
[2019-11-18] MEDS: SODIUM CHLORIDE 0.45% 1,000 ML IV SCH (17:20)
[2019-11-18] MEDS: traMADol 50 MG TABLET PO PRN (17:44)
[2019-11-18] MEDS: ASPIRIN EC 81 MG TABLET PO SCH (21:24)
[2019-11-19] MEDS: carvediloL 25 MG TABLET PO SCH ×2 (09:57→19:31)
[2019-11-19] MEDS: cloNIDine 0.1 MG TABLET PO SCH ×2 (09:57→19:30)
[2019-11-19] MEDS: MECLIZINE 25 MG TABLET PO SCH ×3 (09:58→19:31)
[2019-11-19] MEDS: INSULIN LISPRO 100 UNIT/ML SUBCUT SCH ×3 (09:58→19:31)
[2019-11-19] MEDS: SODIUM CHLORIDE 0.45% 1,000 ML IV SCH (12:51)
[2019-11-19] MEDS: traMADol 50 MG TABLET PO PRN (12:51)
[2019-11-19 19:55] VITALS: BP 102/57
== END 2019-11-19 19:36 | disposition home or self-care (01) ==
LOC: N.ED 17:28 → N.EDINP 17:28 → N.3E 11-18 00:33
PROVIDERS: ADMIT Family Medicine; ATTEND Family Medicine

== ENCOUNTER 2020-01-22 01:34 | Observation (INO) ==
[2020-01-22] MEDS ORDERED: ONDANSETRON 4 MG/2 ML VIAL IV STA (02:28)
[2020-01-22] MEDS ORDERED: ALUM/MAG/SIMETH/LIDO VISC 1:1 30 ML BOTTLE PO STA (02:29)
[2020-01-22 03:39] LABS: Basophils # 0.1 10*3/uL (0.0-0.2); Basophils % 0.4 % (0.0-0.8); Eosinophils % 0.1 % (0.00-10.9); Hematocrit 42.1 VOL% (42.0-52.0); Hemoglobin 13.8 GM/DL (14.0-18.0); Immature Granulocytes % 0.4 %; Immature Granulocytes Absolute 0.07 #; Lymphocytes # 2.3 10*3/uL (1.4-4.0); Lymphocytes % 13.9 % (21.2-54.2); Mean Corpuscular HGB Conc 32.8 GM/DL (32-36); Mean Corpuscular Volume 86.1 FL (87-102); Mean Platelet Volume 12.2 FL (9.6-12.0); Monocytes % 5.8 % (1.7-12.7); Neutrophils % 79.4 % (38.7-73.9); Platelet Count 323 T/CUMM (130-400); Red Blood Count 4.89 MC/CUMM (3.8-5.5); Red Cell Distribution Width 13.2 % (9.3-17.3); White Blood Count 16.3 T/CUMM (4-12)
[2020-01-22 04:06] LABS: Alanine Aminotransferase 20 U/L (16-61); Albumin 3.2 G/DL (3.4-5.0); Alkaline Phosphatase 129 U/L (45-117); Amylase 92 U/L (25-115); Aspartate Amino Transferase 17 U/L (0-37); Blood Urea Nitrogen 29 MG/DL (7-18); Calcium 8.6 MG/DL (8.5-10.1); Estimated Glom Filtration Rate 16 ML/MIN; Glucose 358 MG/DL (74-106); Osmolality,Calculated 287.2 MOS/KG (273-304); Total Protein 8.6 G/DL (6.4-8.3)
[2020-01-22 04:07] LABS: Hypochromasia 1+; Lymphocytes 14 % (20-55); Microcytosis Slight; Platelet Estimate Adequate; Segmented Neutrophils 83 % (50-85); Total Cells Counted 100
[2020-01-22] MEDS ORDERED: INSULIN REGULAR 100 UNIT/ML SUBCUT STA (04:11)
[2020-01-22] MEDS ORDERED: ONDANSETRON 4 MG/2 ML VIAL IV PRN (08:56)
[2020-01-22] MEDS ORDERED: GLUCAGON 1 MG VIAL IM PRN (08:56)
[2020-01-22] MEDS ORDERED: DEXTROSE 50% 25 GM/50 ML VIAL IV PRN (08:56)
[2020-01-22] MEDS ORDERED: ACETAMINOPHEN 325 MG TABLET PO PRN (08:56)
[2020-01-22] MEDS: INSULIN REGULAR 100 UNIT/ML SUBCUT SCH ×3 (09:16→18:23)
[2020-01-22] MEDS: DOCUSATE SODIUM 100 MG CAPSULE PO SCH ×2 (09:23→20:27)
[2020-01-22] MEDS: PANTOPRAZOLE 40 MG TABLET PO SCH (09:23)
[2020-01-22 09:58] LABS: Troponin I 0.435 NG/ML (0.00-0.045)
[2020-01-22] MEDS ORDERED: hydrALAZINE 20 MG/1 ML VIAL IV PRN (14:49)
[2020-01-22] MEDS: hydrALAZINE 25 MG TABLET PO SCH ×2 (16:06→20:27)
[2020-01-22] MEDS: INSULIN GLARGINE 100 UNIT/ML SUBCUT SCH (20:27)
[2020-01-22] MEDS ORDERED: ASPIRIN EC 81 MG TABLET PO SCH (21:00)
[2020-01-22] MEDS ORDERED: carvediloL 25 MG TABLET PO SCH (21:00)
[2020-01-23] MEDS: INSULIN REGULAR 100 UNIT/ML SUBCUT SCH ×3 (00:57→12:16)
[2020-01-23 06:05] LABS: Basophils # 0.1 10*3/uL (0.0-0.2); Basophils % 0.7 % (0.0-0.8); Eosinophils # 0.3 10*3/uL (0.0-0.87); Eosinophils % 2.9 % (0.00-10.9); Hematocrit 36.6 VOL% (42.0-52.0); Hemoglobin 11.9 GM/DL (14.0-18.0); Immature Granulocytes % 0.4 %; Immature Granulocytes Absolute 0.04 #; Lymphocytes # 3.5 10*3/uL (1.4-4.0); Lymphocytes % 33.4 % (21.2-54.2); Mean Corpuscular HGB Conc 32.5 GM/DL (32-36); Mean Corpuscular Volume 85.9 FL (87-102); Mean Platelet Volume 12.2 FL (9.6-12.0); Monocytes % 7.3 % (1.7-12.7); Neutrophils % 55.3 % (38.7-73.9); Platelet Count 285 T/CUMM (130-400); Red Blood Count 4.26 MC/CUMM (3.8-5.5); White Blood Count 10.6 T/CUMM (4-12)
[2020-01-23 06:29] LABS: Albumin 2.7 G/DL (3.4-5.0); Bilirubin,Total 0.4 MG/DL (0.2-1.0); Calcium 7.9 MG/DL (8.5-10.1); Osmolality,Calculated 292.8 MOS/KG (273-304); Total Protein 7.3 G/DL (6.4-8.3)
[2020-01-23] MEDS: DOCUSATE SODIUM 100 MG CAPSULE PO SCH (08:39)
[2020-01-23] MEDS: INSULIN GLARGINE 100 UNIT/ML SUBCUT SCH (08:39)
[2020-01-23] MEDS: hydrALAZINE 25 MG TABLET PO SCH ×2 (08:39→16:38)
[2020-01-23] MEDS: PANTOPRAZOLE 40 MG TABLET PO SCH (08:39)
[2020-01-23] MEDS ORDERED: cloNIDine 0.1 MG TABLET PO SCH (09:00)
[2020-01-23] MEDS ORDERED: HEPARIN 10,000 UNIT/10 ML VIAL IV SCH (15:45)
[2020-01-23 17:16] VITALS: BP 148/85
== END 2020-01-23 18:02 | disposition home or self-care (01) ==
LOC: N.ED 01:34 → N.EDINP 05:34 → INTOOBSV 05:34 → N.5E 08:05
PROVIDERS: ADMIT Family Medicine; ATTEND Family Medicine

== ENCOUNTER 2020-07-12 13:45 | Observation (INO) ==
[2020-07-12 15:11] LABS: Basophils # 0.1 10*3/uL (0.0-0.2); Basophils % 0.7 % (0.0-0.8); Eosinophils # 0.1 10*3/uL (0.0-0.87); Eosinophils % 1.6 % (0.00-10.9); Hematocrit 40.8 VOL% (42.0-52.0); Hemoglobin 13.5 GM/DL (14.0-18.0); Immature Granulocytes % 0.5 %; Immature Granulocytes Absolute 0.04 #; Lymphocytes # 2.4 10*3/uL (1.4-4.0); Lymphocytes % 27.6 % (21.2-54.2); Mean Corpuscular HGB Conc 33.1 GM/DL (32-36); Mean Corpuscular Volume 84.1 FL (87-102); Mean Platelet Volume 13.2 FL (9.6-12.0); Monocytes % 5.7 % (1.7-12.7); Neutrophils % 63.9 % (38.7-73.9); Platelet Count 271 T/CUMM (130-400); Red Blood Count 4.85 MC/CUMM (3.8-5.5); Red Cell Distribution Width 13.1 % (9.3-17.3); White Blood Count 8.8 T/CUMM (4-12)
[2020-07-12 15:23] LABS: Alanine Aminotransferase 18 U/L (16-61); Albumin 3.2 G/DL (3.4-5.0); Alkaline Phosphatase 97 U/L (45-117); Aspartate Amino Transferase 21 U/L (0-37); Bilirubin,Total < 0.39 MG/DL (0.2-1.0); Blood Urea Nitrogen 31 MG/DL (7-18); Calcium 9.2 MG/DL (8.5-10.1); Carbon Dioxide 26 MMOL/L (21-32); Estimated Glom Filtration Rate 15 ML/MIN; Glucose 260 MG/DL (74-106); Osmolality,Calculated 283.2 MOS/KG (273-304); Potassium 3.8 MMOL/L (3.5-5.1); Sodium 134 MMOL/L (136-145); Total Protein 8.9 G/DL (6.4-8.2)
[2020-07-12] MEDS ORDERED: GLUCAGON 1 MG VIAL IM PRN (18:06)
[2020-07-12] MEDS ORDERED: DEXTROSE 50% 25 GM/50 ML VIAL IV PRN (18:06)
[2020-07-12] MEDS ORDERED: ONDANSETRON 4 MG/2 ML VIAL IV PRN (18:06)
[2020-07-12] MEDS: INSULIN REGULAR 100 UNIT/ML SUBCUT SCH (20:58)
[2020-07-12] MEDS: DOCUSATE SODIUM 100 MG CAPSULE PO SCH (20:58)
[2020-07-12] MEDS ORDERED: hydrALAZINE 20 MG/1 ML VIAL IV ONE (22:18)
[2020-07-12] MEDS ORDERED: INSULIN REGULAR 100 UNIT/ML SUBCUT ONE (22:19)
[2020-07-13] MEDS: PANTOPRAZOLE 40 MG TABLET PO SCH (08:22)
[2020-07-13] MEDS: DOCUSATE SODIUM 100 MG CAPSULE PO SCH ×2 (08:22→20:56)
[2020-07-13] MEDS: INSULIN REGULAR 100 UNIT/ML SUBCUT SCH ×4 (08:25→20:58)
[2020-07-13] MEDS ORDERED: LINACLOTIDE 145 MCG CAPSULE PO PRN (10:06)
[2020-07-13] MEDS ORDERED: MECLIZINE 25 MG TABLET PO PRN (10:06)
[2020-07-13] MEDS: INSULIN GLARGINE 100 UNIT/ML SUBCUT SCH ×2 (10:24→20:57)
[2020-07-13 11:29] LABS: Troponin I 0.432 NG/ML (0.00-0.045)
[2020-07-13] MEDS: carvediloL 25 MG TABLET PO SCH ×2 (11:47→21:01)
[2020-07-13 14:08] LABS: Troponin I 0.648 NG/ML (0.00-0.045)
[2020-07-13] MEDS: hydrALAZINE 25 MG TABLET PO SCH ×2 (14:45→20:56)
[2020-07-13] MEDS: ASPIRIN EC 81 MG TABLET PO SCH (20:56)
[2020-07-13] MEDS ORDERED: carvediloL 25 MG TABLET PO SCH (21:00)
[2020-07-14 06:09] LABS: Basophils # 0.1 10*3/uL (0.0-0.2); Basophils % 0.6 % (0.0-0.8); Eosinophils # 0.1 10*3/uL (0.0-0.87); Eosinophils % 0.8 % (0.00-10.9); Hematocrit 37.2 VOL% (42.0-52.0); Immature Granulocytes % 0.2 %; Immature Granulocytes Absolute 0.02 #; Lymphocytes # 2.4 10*3/uL (1.4-4.0); Lymphocytes % 27.5 % (21.2-54.2); Mean Corpuscular HGB Conc 32.3 GM/DL (32-36); Mean Corpuscular Volume 86.7 FL (87-102); Mean Platelet Volume 12.8 FL (9.6-12.0); Neutrophils % 58.9 % (38.7-73.9); Platelet Count 250 T/CUMM (130-400); Red Blood Count 4.29 MC/CUMM (3.8-5.5); Red Cell Distribution Width 13.5 % (9.3-17.3); White Blood Count 8.7 T/CUMM (4-12)
[2020-07-14 06:41] LABS: Calcium 8.8 MG/DL (8.5-10.1); Osmolality,Calculated 289.7 MOS/KG (273-304)
[2020-07-14] MEDS: INSULIN REGULAR 100 UNIT/ML SUBCUT SCH ×4 (09:29→20:55)
[2020-07-14] MEDS ORDERED: diphenhydrAMINE CAP 25 MG CAPSULE PO ONE (10:00)
[2020-07-14] MEDS ORDERED: SODIUM CHLORIDE 0.9% 500 ML IV SCH (10:00)
[2020-07-14] MEDS ORDERED: DIAZEPAM 5 MG TABLET PO ONE (10:00)
[2020-07-14] MEDS ORDERED: LIDOCAINE 1% 20 ML VIAL ONE ×2 (10:41→10:42)
[2020-07-14] MEDS ORDERED: MIDAZOLAM 2 MG/2 ML VIAL ONE (11:00)
[2020-07-14] MEDS ORDERED: HEPARIN 5,000 UNIT/1 ML VIAL ONE (11:18)
[2020-07-14] MEDS ORDERED: LABETALOL 20 MG/4 ML SYRINGE IV ONE (11:41)
[2020-07-14] MEDS ORDERED: DEXTROSE 50% 25 GM/50 ML VIAL IV PRN (12:21)
[2020-07-14] MEDS ORDERED: GLUCAGON 1 MG VIAL IM PRN (12:21)
[2020-07-14] MEDS: carvediloL 25 MG TABLET PO SCH ×2 (14:19→20:22)
[2020-07-14] MEDS: DOCUSATE SODIUM 100 MG CAPSULE PO SCH ×2 (14:19→20:22)
[2020-07-14] MEDS: hydrALAZINE 25 MG TABLET PO SCH ×3 (14:19→20:23)
[2020-07-14] MEDS: INSULIN GLARGINE 100 UNIT/ML SUBCUT SCH ×2 (14:20→20:55)
[2020-07-14] MEDS: PANTOPRAZOLE 40 MG TABLET PO SCH (14:20)
[2020-07-14] MEDS: ATORVASTATIN 80 MG TABLET PO SCH (14:22)
[2020-07-14] MEDS ORDERED: HEPARIN 10,000 UNIT/10 ML VIAL IV SCH (17:15)
[2020-07-14] MEDS: ASPIRIN EC 81 MG TABLET PO SCH (20:22)
[2020-07-14] MEDS: ACETAMINOPHEN 325 MG TABLET PO PRN (20:56)
[2020-07-15 05:57] LABS: Basophils # 0.1 10*3/uL (0.0-0.2); Basophils % 0.8 % (0.0-0.8); Eosinophils # 0.2 10*3/uL (0.0-0.87); Eosinophils % 2.4 % (0.00-10.9); Hematocrit 36.2 VOL% (42.0-52.0); Hemoglobin 11.9 GM/DL (14.0-18.0); Immature Granulocytes % 0.4 %; Immature Granulocytes Absolute 0.03 #; Lymphocytes # 2.8 10*3/uL (1.4-4.0); Lymphocytes % 36.4 % (21.2-54.2); Mean Corpuscular HGB Conc 32.9 GM/DL (32-36); Mean Platelet Volume 12.7 FL (9.6-12.0); Monocytes % 10.4 % (1.7-12.7); Neutrophils % 49.6 % (38.7-73.9); Platelet Count 226 T/CUMM (130-400); Red Blood Count 4.21 MC/CUMM (3.8-5.5); Red Cell Distribution Width 13.8 % (9.3-17.3); White Blood Count 7.6 T/CUMM (4-12)
[2020-07-15 06:17] LABS: Calcium 8.2 MG/DL (8.5-10.1); Osmolality,Calculated 276.5 MOS/KG (273-304); Potassium 4.4 MMOL/L (3.5-5.1)
[2020-07-15] MEDS: hydrALAZINE 25 MG TABLET PO SCH ×2 (09:13→15:32)
[2020-07-15] MEDS: INSULIN REGULAR 100 UNIT/ML SUBCUT SCH ×3 (09:13→16:03)
[2020-07-15] MEDS: INSULIN GLARGINE 100 UNIT/ML SUBCUT SCH (09:14)
[2020-07-15] MEDS: PANTOPRAZOLE 40 MG TABLET PO SCH (09:14)
[2020-07-15] MEDS: DOCUSATE SODIUM 100 MG CAPSULE PO SCH (09:14)
[2020-07-15] MEDS: carvediloL 25 MG TABLET PO SCH (09:14)
[2020-07-15] MEDS: ATORVASTATIN 80 MG TABLET PO SCH (09:14)
[2020-07-15] MEDS: ACETAMINOPHEN 325 MG TABLET PO PRN (13:30)
[2020-07-15 16:17] VITALS: BP 110/54
== END 2020-07-15 17:24 | disposition home or self-care (01) ==
LOC: N.EDINP 13:45 → N.ED 13:45 → N.TELES 17:15
PROVIDERS: ADMIT Family Medicine; ATTEND Family Medicine
PROC: CLCCHCL (ICD-10-PCS; 2020-07-14 10:45)

== ENCOUNTER 2020-07-16 01:08 | Inpatient (IN) ==
[2020-07-16 02:14] LABS: Basophils % 0.4 % (0.0-0.8); Eosinophils # 0.2 10*3/uL (0.0-0.87); Eosinophils % 2.6 % (0.00-10.9); Hematocrit 39.2 VOL% (42.0-52.0); Hemoglobin 12.5 GM/DL (14.0-18.0); Immature Granulocytes % 0.3 %; Immature Granulocytes Absolute 0.03 #; Lymphocytes # 2.7 10*3/uL (1.4-4.0); Lymphocytes % 29.8 % (21.2-54.2); Mean Corpuscular HGB Conc 31.9 GM/DL (32-36); Mean Corpuscular Volume 87.9 FL (87-102); Mean Platelet Volume 12.9 FL (9.6-12.0); Monocytes % 8.2 % (1.7-12.7); Neutrophils % 58.7 % (38.7-73.9); Platelet Count 241 T/CUMM (130-400); Red Blood Count 4.46 MC/CUMM (3.8-5.5); Red Cell Distribution Width 13.7 % (9.3-17.3); White Blood Count 9.2 T/CUMM (4-12)
[2020-07-16 02:36] LABS: Alanine Aminotransferase 15 U/L (16-61); Alkaline Phosphatase 86 U/L (45-117); Aspartate Amino Transferase 24 U/L (0-37); Bilirubin,Total < 0.39 MG/DL (0.2-1.0); Blood Urea Nitrogen 48 MG/DL (7-18); Calcium 8.5 MG/DL (8.5-10.1); Carbon Dioxide 25 MMOL/L (21-32); Estimated Glom Filtration Rate 9 ML/MIN; Glucose 203 MG/DL (74-106); Osmolality,Calculated 286.2 MOS/KG (273-304); Potassium 4.8 MMOL/L (3.5-5.1); Sodium 134 MMOL/L (136-145); Total Protein 7.8 G/DL (6.4-8.2)
[2020-07-16 02:45] LABS: Band Neutrophils 1 % (0-10); Eosinophils 3 % (0-10); Lymphocytes 23 % (20-55); Microcytosis 1+; Platelet Estimate Normal; Segmented Neutrophils 65 % (50-85); Total Cells Counted 100
[2020-07-16 02:46] LABS: Hypochromasia Slight; Smudge Cells Few
[2020-07-16 02:47] LABS: Stomatocytes 1+
[2020-07-16] MEDS ORDERED: NITROGLYCERIN SL 0.4 MG TABLET SL STA (03:04)
[2020-07-16] MEDS ORDERED: ASPIRIN EC 325 MG TABLET PO STA (03:04)
[2020-07-16] MEDS ORDERED: ONDANSETRON 4 MG/2 ML VIAL IV PRN (03:19)
[2020-07-16] MEDS: cloNIDine 0.1 MG TABLET PO SCH ×3 (10:50→21:45)
[2020-07-16] MEDS: INSULIN GLARGINE 100 UNIT/ML SUBCUT SCH ×2 (10:50→21:45)
[2020-07-16] MEDS: ENOXAPARIN 30 MG/0.3 ML SYRINGE SUBCUT SCH (10:50)
[2020-07-16] MEDS: ASPIRIN CHEW 81 MG TABLET PO SCH (10:50)
[2020-07-16] MEDS: hydrALAZINE 25 MG TABLET PO SCH ×3 (10:50→21:44)
[2020-07-16] MEDS: PANTOPRAZOLE 40 MG VIAL IV SCH (10:51)
[2020-07-16] MEDS ORDERED: LINACLOTIDE 145 MCG CAPSULE PO PRN (15:07)
[2020-07-16] MEDS ORDERED: GLUCAGON 1 MG VIAL IM PRN (15:09)
[2020-07-16] MEDS: INSULIN REGULAR 100 UNIT/ML SUBCUT SCH ×2 (17:35→21:46)
[2020-07-16] MEDS ORDERED: HEPARIN 10,000 UNIT/10 ML VIAL IV SCH (17:45)
[2020-07-16] MEDS: carvediloL 25 MG TABLET PO SCH (21:45)
[2020-07-16 23:25] LABS: Bilirubin,Urine Negative (Negative); Blood, Urine Negative (Negative); Glucose,Urine (UA) >=500 mg/dL (Negative); Ketones,Urine Negative (Negative); Nitrite,Urine Negative (Negative); Protein,Urine >=500 MG/DL; RBC,Urine <1 /HPF (0-4); Urine Appearance CLEAR (Clear); Urine Color Yellow (Yellow); Urine Specific Gravity 1.014 (1.001-1.035); Urine Urobilinogen < 2.0 EU/DL (0.2-1.0); WBC,Urine <1 /HPF (0-6)
[2020-07-17] MEDS: ASPIRIN CHEW 81 MG TABLET PO SCH (03:34)
[2020-07-17 05:29] LABS: Basophils # 0.1 10*3/uL (0.0-0.2); Basophils % 0.7 % (0.0-0.8); Eosinophils # 0.3 10*3/uL (0.0-0.87); Eosinophils % 4.1 % (0.00-10.9); Hematocrit 37.1 VOL% (42.0-52.0); Hemoglobin 12.1 GM/DL (14.0-18.0); Immature Granulocytes % 0.4 %; Immature Granulocytes Absolute 0.03 #; Lymphocytes # 2.9 10*3/uL (1.4-4.0); Lymphocytes % 40.5 % (21.2-54.2); Mean Corpuscular HGB Conc 32.6 GM/DL (32-36); Mean Corpuscular Volume 87.3 FL (87-102); Mean Platelet Volume 13.3 FL (9.6-12.0); Monocytes % 9.3 % (1.7-12.7); Platelet Count 241 T/CUMM (130-400); Red Blood Count 4.25 MC/CUMM (3.8-5.5); Red Cell Distribution Width 13.6 % (9.3-17.3); White Blood Count 7.2 T/CUMM (4-12)
[2020-07-17 05:40] LABS: Calcium 8.2 MG/DL (8.5-10.1); Osmolality,Calculated 281.1 MOS/KG (273-304); Potassium 4.4 MMOL/L (3.5-5.1)
[2020-07-17 06:18] LABS: Platelet Estimate Normal
[2020-07-17 06:19] LABS: Hypochromasia Slight
[2020-07-17] MEDS: INSULIN REGULAR 100 UNIT/ML SUBCUT SCH ×4 (07:57→21:17)
[2020-07-17 08:49] LABS: Barbiturates Screen,Urine Negative (Negative); Benzodiazepines Screen,Urine Negative (Negative); Cannabinoid Screen,Urine Negative (Negative); Opiate Screen,Urine Negative (Negative); Phencyclidine Screen,Urine Negative (Negative)
[2020-07-17] MEDS: cloNIDine 0.1 MG TABLET PO SCH ×3 (09:25→21:15)
[2020-07-17] MEDS: ATORVASTATIN 80 MG TABLET PO SCH (09:25)
[2020-07-17] MEDS: hydrALAZINE 25 MG TABLET PO SCH ×3 (09:26→21:15)
[2020-07-17] MEDS: INSULIN GLARGINE 100 UNIT/ML SUBCUT SCH ×2 (09:26→21:16)
[2020-07-17] MEDS: PANTOPRAZOLE 40 MG VIAL IV SCH (09:26)
[2020-07-17] MEDS: ENOXAPARIN 30 MG/0.3 ML SYRINGE SUBCUT SCH (09:30)
[2020-07-17] MEDS: carvediloL 25 MG TABLET PO SCH (21:15)
[2020-07-18] MEDS: ASPIRIN CHEW 81 MG TABLET PO SCH (04:13)
[2020-07-18 05:44] LABS: Basophils # 0.1 10*3/uL (0.0-0.2); Basophils % 0.7 % (0.0-0.8); Eosinophils # 0.3 10*3/uL (0.0-0.87); Eosinophils % 3.4 % (0.00-10.9); Hematocrit 33.8 VOL% (42.0-52.0); Hemoglobin 10.8 GM/DL (14.0-18.0); Immature Granulocytes % 0.3 %; Immature Granulocytes Absolute 0.03 #; Lymphocytes # 3.8 10*3/uL (1.4-4.0); Lymphocytes % 41.6 % (21.2-54.2); Mean Platelet Volume 13.5 FL (9.6-12.0); Platelet Count 248 T/CUMM (130-400); Red Blood Count 3.84 MC/CUMM (3.8-5.5); Red Cell Distribution Width 13.7 % (9.3-17.3); White Blood Count 9.2 T/CUMM (4-12)
[2020-07-18 06:13] LABS: Calcium 7.9 MG/DL (8.5-10.1); Osmolality,Calculated 289.1 MOS/KG (273-304); Potassium 4.6 MMOL/L (3.5-5.1)
[2020-07-18 07:09] LABS: Atypical Lymphocytes Few; Platelet Estimate Normal; Polychromasia Slight; Reactive Lymphocytes Few
[2020-07-18] MEDS: INSULIN REGULAR 100 UNIT/ML SUBCUT SCH ×4 (07:40→22:07)
[2020-07-18] MEDS: ENOXAPARIN 30 MG/0.3 ML SYRINGE SUBCUT SCH (09:12)
[2020-07-18] MEDS: cloNIDine 0.1 MG TABLET PO SCH ×3 (09:12→22:07)
[2020-07-18] MEDS: INSULIN GLARGINE 100 UNIT/ML SUBCUT SCH ×2 (09:13→22:09)
[2020-07-18] MEDS: ATORVASTATIN 80 MG TABLET PO SCH (09:13)
[2020-07-18] MEDS: hydrALAZINE 25 MG TABLET PO SCH ×3 (09:13→22:07)
[2020-07-18] MEDS: PANTOPRAZOLE 40 MG VIAL IV SCH (09:17)
[2020-07-18] MEDS: carvediloL 25 MG TABLET PO SCH (22:07)
[2020-07-19] MEDS: ASPIRIN CHEW 81 MG TABLET PO SCH (04:01)
[2020-07-19 05:59] LABS: Basophils # 0.1 10*3/uL (0.0-0.2); Basophils % 0.7 % (0.0-0.8); Eosinophils # 0.3 10*3/uL (0.0-0.87); Eosinophils % 3.1 % (0.00-10.9); Hematocrit 35.6 VOL% (42.0-52.0); Hemoglobin 11.4 GM/DL (14.0-18.0); Immature Granulocytes % 0.4 %; Immature Granulocytes Absolute 0.04 #; Lymphocytes # 3.7 10*3/uL (1.4-4.0); Mean Corpuscular Volume 87.3 FL (87-102); Mean Platelet Volume 13.2 FL (9.6-12.0); Monocytes % 7.8 % (1.7-12.7); Platelet Count 266 T/CUMM (130-400); Red Blood Count 4.08 MC/CUMM (3.8-5.5); Red Cell Distribution Width 13.7 % (9.3-17.3); White Blood Count 9.9 T/CUMM (4-12)
[2020-07-19 06:15] LABS: Calcium 8.2 MG/DL (8.5-10.1); Osmolality,Calculated 282.1 MOS/KG (273-304); Potassium 4.7 MMOL/L (3.5-5.1)
[2020-07-19 06:25] LABS: Hypochromasia 1+; Microcytosis 1+; Platelet Estimate Normal
[2020-07-19] MEDS: INSULIN REGULAR 100 UNIT/ML SUBCUT SCH ×4 (07:49→21:51)
[2020-07-19] MEDS: PANTOPRAZOLE 40 MG VIAL IV SCH (08:53)
[2020-07-19] MEDS: ATORVASTATIN 80 MG TABLET PO SCH (08:53)
[2020-07-19] MEDS: cloNIDine 0.1 MG TABLET PO SCH ×3 (08:53→21:26)
[2020-07-19] MEDS: hydrALAZINE 25 MG TABLET PO SCH ×3 (08:53→21:27)
[2020-07-19] MEDS: ENOXAPARIN 30 MG/0.3 ML SYRINGE SUBCUT SCH (08:54)
[2020-07-19] MEDS: INSULIN GLARGINE 100 UNIT/ML SUBCUT SCH ×2 (08:54→21:54)
[2020-07-19] MEDS ORDERED: diphenhydrAMINE CAP 25 MG CAPSULE PO ONE (12:04)
[2020-07-19] MEDS ORDERED: DIAZEPAM 5 MG TABLET PO ONE (12:04)
[2020-07-19] MEDS: carvediloL 25 MG TABLET PO SCH (21:27)
[2020-07-20] MEDS: DEXTROSE 50% 25 GM/50 ML VIAL IV PRN ×3 (04:24→16:54)
[2020-07-20] MEDS: INSULIN REGULAR 100 UNIT/ML SUBCUT SCH ×4 (07:52→22:02)
[2020-07-20 08:30] LABS: Basophils # 0.1 10*3/uL (0.0-0.2); Basophils % 0.6 % (0.0-0.8); Eosinophils # 0.2 10*3/uL (0.0-0.87); Eosinophils % 2.2 % (0.00-10.9); Hemoglobin 12.4 GM/DL (14.0-18.0); Immature Granulocytes % 0.2 %; Immature Granulocytes Absolute 0.02 #; Lymphocytes # 2.1 10*3/uL (1.4-4.0); Lymphocytes % 23.7 % (21.2-54.2); Mean Corpuscular HGB Conc 31.8 GM/DL (32-36); Mean Corpuscular Volume 87.2 FL (87-102); Mean Platelet Volume 13.3 FL (9.6-12.0); Monocytes % 7.6 % (1.7-12.7); Neutrophils % 65.7 % (38.7-73.9); Platelet Count 275 T/CUMM (130-400); Red Blood Count 4.47 MC/CUMM (3.8-5.5); Red Cell Distribution Width 13.6 % (9.3-17.3); White Blood Count 8.7 T/CUMM (4-12)
[2020-07-20 08:55] LABS: Calcium 8.4 MG/DL (8.5-10.1); Osmolality,Calculated 274.4 MOS/KG (273-304); Potassium 4.7 MMOL/L (3.5-5.1)
[2020-07-20] MEDS ORDERED: MAGNESIUM SULF RIDER 4 GM in PREMIX 1 EACH IV ONE (09:09)
[2020-07-20] MEDS: hydrALAZINE 25 MG TABLET PO SCH ×3 (09:48→21:50)
[2020-07-20] MEDS: ASPIRIN CHEW 81 MG TABLET PO SCH (09:48)
[2020-07-20] MEDS: cloNIDine 0.1 MG TABLET PO SCH ×3 (09:48→21:51)
[2020-07-20] MEDS: ATORVASTATIN 80 MG TABLET PO SCH (09:49)
[2020-07-20] MEDS: ENOXAPARIN 30 MG/0.3 ML SYRINGE SUBCUT SCH (09:49)
[2020-07-20] MEDS: INSULIN GLARGINE 100 UNIT/ML SUBCUT SCH ×2 (09:49→22:02)
[2020-07-20] MEDS: PANTOPRAZOLE 40 MG VIAL IV SCH (09:49)
[2020-07-20] MEDS ORDERED: SODIUM CHLORIDE 0.9% 500 ML IV SCH (11:00)
[2020-07-20] MEDS ORDERED: diphenhydrAMINE CAP 25 MG CAPSULE PO ONE (12:00)
[2020-07-20] MEDS ORDERED: DIAZEPAM 5 MG TABLET PO ONE (12:00)
[2020-07-20] MEDS: ACETAMINOPHEN 325 MG TABLET PO PRN (14:09)
[2020-07-20] MEDS: carvediloL 25 MG TABLET PO SCH ×2 (21:50→21:51)
[2020-07-21 05:13] LABS: Basophils # 0.1 10*3/uL (0.0-0.2); Basophils % 0.6 % (0.0-0.8); Eosinophils # 0.2 10*3/uL (0.0-0.87); Eosinophils % 2.8 % (0.00-10.9); Hemoglobin 11.6 GM/DL (14.0-18.0); Immature Granulocytes % 0.5 %; Immature Granulocytes Absolute 0.04 #; Lymphocytes # 2.9 10*3/uL (1.4-4.0); Lymphocytes % 33.1 % (21.2-54.2); Mean Corpuscular HGB Conc 32.2 GM/DL (32-36); Mean Platelet Volume 12.7 FL (9.6-12.0); Monocytes % 9.4 % (1.7-12.7); Neutrophils % 53.6 % (38.7-73.9); Platelet Count 277 T/CUMM (130-400); Red Blood Count 4.14 MC/CUMM (3.8-5.5); Red Cell Distribution Width 13.9 % (9.3-17.3); White Blood Count 8.6 T/CUMM (4-12)
[2020-07-21 05:34] LABS: Eosinophils 2 % (0-10); Hypochromasia 1+; Lymphocytes 22 % (20-55); Microcytosis 1+; Platelet Estimate Adequate; Segmented Neutrophils 67 % (50-85); Total Cells Counted 100
[2020-07-21 05:43] LABS: Calcium 8.1 MG/DL (8.5-10.1); Osmolality,Calculated 285.1 MOS/KG (273-304); Potassium 5.3 MMOL/L (3.5-5.1)
[2020-07-21] MEDS: INSULIN GLARGINE 100 UNIT/ML SUBCUT SCH ×2 (08:23→22:47)
[2020-07-21] MEDS: INSULIN REGULAR 100 UNIT/ML SUBCUT SCH ×4 (08:23→22:46)
[2020-07-21] MEDS: ENOXAPARIN 30 MG/0.3 ML SYRINGE SUBCUT SCH (09:23)
[2020-07-21] MEDS: hydrALAZINE 25 MG TABLET PO SCH ×3 (09:24→22:48)
[2020-07-21] MEDS: cloNIDine 0.1 MG TABLET PO SCH ×3 (09:24→22:48)
[2020-07-21] MEDS: ATORVASTATIN 80 MG TABLET PO SCH (09:24)
[2020-07-21] MEDS: ASPIRIN CHEW 81 MG TABLET PO SCH (09:25)
[2020-07-21] MEDS: PANTOPRAZOLE 40 MG TABLET PO SCH (09:26)
[2020-07-21] MEDS ORDERED: DIAZEPAM 5 MG TABLET PO ONE (10:02)
[2020-07-21] MEDS ORDERED: diphenhydrAMINE CAP 25 MG CAPSULE PO ONE (10:03)
[2020-07-21] MEDS ORDERED: DIAZEPAM 5 MG TABLET ONE (10:05)
[2020-07-21] MEDS ORDERED: LIDOCAINE 1% 20 ML VIAL ONE (10:26)
[2020-07-21] MEDS ORDERED: MIDAZOLAM 2 MG/2 ML VIAL ONE ×2 (10:27→11:57)
[2020-07-21] MEDS ORDERED: ENOXAPARIN 60 MG/0.6 ML SYRINGE ONE (10:50)
[2020-07-21] MEDS ORDERED: TICAGRELOR 90 MG TABLET ONE (11:34)
[2020-07-21 13:03] LABS: Troponin I 0.307 NG/ML (0.00-0.045)
[2020-07-21] MEDS: TICAGRELOR 90 MG TABLET PO SCH (22:48)
[2020-07-21] MEDS: carvediloL 25 MG TABLET PO SCH (23:16)
[2020-07-22 07:29] LABS: Basophils # 0.1 10*3/uL (0.0-0.2); Basophils % 0.7 % (0.0-0.8); Eosinophils # 0.2 10*3/uL (0.0-0.87); Eosinophils % 2.3 % (0.00-10.9); Hematocrit 36.6 VOL% (42.0-52.0); Hemoglobin 11.7 GM/DL (14.0-18.0); Immature Granulocytes % 0.3 %; Immature Granulocytes Absolute 0.03 #; Lymphocytes # 2.7 10*3/uL (1.4-4.0); Lymphocytes % 29.2 % (21.2-54.2); Mean Corpuscular Volume 86.5 FL (87-102); Mean Platelet Volume 12.7 FL (9.6-12.0); Monocytes % 10.8 % (1.7-12.7); Neutrophils % 56.7 % (38.7-73.9); Platelet Count 317 T/CUMM (130-400); Red Blood Count 4.23 MC/CUMM (3.8-5.5); Red Cell Distribution Width 13.9 % (9.3-17.3); White Blood Count 9.1 T/CUMM (4-12)
[2020-07-22 07:45] LABS: Calcium 8.1 MG/DL (8.5-10.1); Osmolality,Calculated 275.4 MOS/KG (273-304); Potassium 5.2 MMOL/L (3.5-5.1)
[2020-07-22 07:49] LABS: Blood Urea Nitrogen 40 MG/DL (7-18); Calcium 8.1 MG/DL (8.5-10.1); Carbon Dioxide 23 MMOL/L (21-32); Estimated Glom Filtration Rate 9 ML/MIN; Glucose 118 MG/DL (74-106); Osmolality,Calculated 276.4 MOS/KG (273-304); Potassium 5.2 MMOL/L (3.5-5.1); Sodium 133 MMOL/L (136-145)
[2020-07-22 07:50] LABS: Eosinophils 2 % (0-10); Hypochromasia Slight; Lymphocytes 37 % (20-55); Microcytosis Slight; Platelet Estimate Adequate; Segmented Neutrophils 52 % (50-85); Total Cells Counted 100
[2020-07-22 07:50] LABS: Troponin I 0.798 NG/ML (0.00-0.045)
[2020-07-22] MEDS: INSULIN REGULAR 100 UNIT/ML SUBCUT SCH ×4 (07:53→21:23)
[2020-07-22] MEDS: INSULIN GLARGINE 100 UNIT/ML SUBCUT SCH ×2 (10:18→21:23)
[2020-07-22] MEDS: ENOXAPARIN 30 MG/0.3 ML SYRINGE SUBCUT SCH (10:18)
[2020-07-22] MEDS: TICAGRELOR 90 MG TABLET PO SCH ×2 (10:19→21:09)
[2020-07-22] MEDS: ASPIRIN CHEW 81 MG TABLET PO SCH (10:19)
[2020-07-22] MEDS: ATORVASTATIN 80 MG TABLET PO SCH (10:19)
[2020-07-22] MEDS: PANTOPRAZOLE 40 MG TABLET PO SCH (10:19)
[2020-07-22] MEDS: cloNIDine 0.1 MG TABLET PO SCH ×3 (10:19→21:08)
[2020-07-22] MEDS: hydrALAZINE 25 MG TABLET PO SCH ×3 (10:19→21:09)
[2020-07-22] MEDS: carvediloL 25 MG TABLET PO SCH (21:09)
[2020-07-23 05:23] LABS: Basophils # 0.1 10*3/uL (0.0-0.2); Basophils % 0.6 % (0.0-0.8); Eosinophils # 0.2 10*3/uL (0.0-0.87); Eosinophils % 2.1 % (0.00-10.9); Hematocrit 35.5 VOL% (42.0-52.0); Hemoglobin 11.9 GM/DL (14.0-18.0); Immature Granulocytes % 0.4 %; Immature Granulocytes Absolute 0.04 #; Lymphocytes # 3.7 10*3/uL (1.4-4.0); Lymphocytes % 36.9 % (21.2-54.2); Mean Corpuscular HGB Conc 33.5 GM/DL (32-36); Mean Corpuscular Volume 84.3 FL (87-102); Mean Platelet Volume 12.1 FL (9.6-12.0); Monocytes % 12.9 % (1.7-12.7); Neutrophils % 47.1 % (38.7-73.9); Platelet Count 298 T/CUMM (130-400); Red Blood Count 4.21 MC/CUMM (3.8-5.5); Red Cell Distribution Width 13.9 % (9.3-17.3); White Blood Count 9.9 T/CUMM (4-12)
[2020-07-23] MEDS: DEXTROSE 50% 25 GM/50 ML VIAL IV PRN (05:30)
[2020-07-23 05:37] LABS: Calcium 8.3 MG/DL (8.5-10.1); Osmolality,Calculated 278.2 MOS/KG (273-304)
[2020-07-23 05:56] LABS: Hypochromasia Slight; Microcytosis 1+
[2020-07-23 05:57] LABS: Platelet Estimate Normal
[2020-07-23] MEDS: INSULIN REGULAR 100 UNIT/ML SUBCUT SCH ×4 (09:15→22:22)
[2020-07-23] MEDS: INSULIN GLARGINE 100 UNIT/ML SUBCUT SCH ×2 (09:16→22:22)
[2020-07-23] MEDS: hydrALAZINE 25 MG TABLET PO SCH ×3 (09:20→22:32)
[2020-07-23] MEDS: PANTOPRAZOLE 40 MG TABLET PO SCH (09:20)
[2020-07-23] MEDS: ASPIRIN CHEW 81 MG TABLET PO SCH (09:20)
[2020-07-23] MEDS: cloNIDine 0.1 MG TABLET PO SCH ×3 (09:21→22:32)
[2020-07-23] MEDS: ATORVASTATIN 80 MG TABLET PO SCH (09:21)
[2020-07-23] MEDS: ENOXAPARIN 30 MG/0.3 ML SYRINGE SUBCUT SCH (09:29)
[2020-07-23] MEDS: TICAGRELOR 90 MG TABLET PO SCH ×2 (09:30→22:32)
[2020-07-23] MEDS ORDERED: TUBERCULIN SKIN TEST 0.1 ML SYRINGE INTRADERM ONE (12:52)
[2020-07-23] MEDS: carvediloL 25 MG TABLET PO SCH (22:31)
[2020-07-24 05:10] LABS: Basophils # 0.1 10*3/uL (0.0-0.2); Basophils % 0.6 % (0.0-0.8); Eosinophils # 0.2 10*3/uL (0.0-0.87); Eosinophils % 2.3 % (0.00-10.9); Hemoglobin 11.5 GM/DL (14.0-18.0); Immature Granulocytes % 0.5 %; Immature Granulocytes Absolute 0.04 #; Lymphocytes # 2.9 10*3/uL (1.4-4.0); Lymphocytes % 33.4 % (21.2-54.2); Mean Corpuscular HGB Conc 31.9 GM/DL (32-36); Mean Corpuscular Volume 85.3 FL (87-102); Mean Platelet Volume 12.3 FL (9.6-12.0); Monocytes % 10.5 % (1.7-12.7); Neutrophils % 52.7 % (38.7-73.9); Platelet Count 337 T/CUMM (130-400); Red Blood Count 4.22 MC/CUMM (3.8-5.5); Red Cell Distribution Width 13.7 % (9.3-17.3); White Blood Count 8.6 T/CUMM (4-12)
[2020-07-24 05:26] LABS: Calcium 8.2 MG/DL (8.5-10.1); Osmolality,Calculated 279.5 MOS/KG (273-304); Potassium 5.5 MMOL/L (3.5-5.1)
[2020-07-24] MEDS: INSULIN REGULAR 100 UNIT/ML SUBCUT SCH ×4 (09:45→22:26)
[2020-07-24] MEDS: INSULIN GLARGINE 100 UNIT/ML SUBCUT SCH ×2 (10:35→22:26)
[2020-07-24] MEDS: hydrALAZINE 25 MG TABLET PO SCH ×3 (10:35→22:26)
[2020-07-24] MEDS: ENOXAPARIN 30 MG/0.3 ML SYRINGE SUBCUT SCH (10:36)
[2020-07-24] MEDS: ASPIRIN CHEW 81 MG TABLET PO SCH (10:42)
[2020-07-24] MEDS: PANTOPRAZOLE 40 MG TABLET PO SCH (10:43)
[2020-07-24] MEDS: TICAGRELOR 90 MG TABLET PO SCH ×2 (10:43→22:26)
[2020-07-24] MEDS: cloNIDine 0.1 MG TABLET PO SCH ×3 (10:44→22:26)
[2020-07-24] MEDS: ATORVASTATIN 80 MG TABLET PO SCH (10:48)
[2020-07-24] MEDS: carvediloL 25 MG TABLET PO SCH (22:26)
[2020-07-25 06:25] LABS: Basophils # 0.1 10*3/uL (0.0-0.2); Basophils % 0.6 % (0.0-0.8); Eosinophils # 0.3 10*3/uL (0.0-0.87); Eosinophils % 2.8 % (0.00-10.9); Hematocrit 36.7 VOL% (42.0-52.0); Hemoglobin 11.6 GM/DL (14.0-18.0); Immature Granulocytes % 0.5 %; Immature Granulocytes Absolute 0.05 #; Lymphocytes # 3.5 10*3/uL (1.4-4.0); Lymphocytes % 35.1 % (21.2-54.2); Mean Corpuscular HGB Conc 31.6 GM/DL (32-36); Mean Corpuscular Volume 87.4 FL (87-102); Mean Platelet Volume 11.8 FL (9.6-12.0); Monocytes % 10.5 % (1.7-12.7); Neutrophils % 50.5 % (38.7-73.9); Platelet Count 347 T/CUMM (130-400); Red Cell Distribution Width 13.5 % (9.3-17.3)
[2020-07-25 06:42] LABS: Calcium 8.5 MG/DL (8.5-10.1); Osmolality,Calculated 279.9 MOS/KG (273-304); Potassium 5.3 MMOL/L (3.5-5.1)
[2020-07-25 06:45] LABS: Platelet Estimate Adequate
[2020-07-25 06:46] LABS: Hypochromasia Slight; Microcytosis Slight
[2020-07-25] MEDS: INSULIN GLARGINE 100 UNIT/ML SUBCUT SCH ×2 (10:04→21:25)
[2020-07-25] MEDS: INSULIN REGULAR 100 UNIT/ML SUBCUT SCH ×4 (10:04→21:24)
[2020-07-25] MEDS: hydrALAZINE 25 MG TABLET PO SCH ×3 (10:05→23:42)
[2020-07-25] MEDS: cloNIDine 0.1 MG TABLET PO SCH ×3 (10:05→23:42)
[2020-07-25] MEDS: ENOXAPARIN 30 MG/0.3 ML SYRINGE SUBCUT SCH (10:05)
[2020-07-25] MEDS: ASPIRIN CHEW 81 MG TABLET PO SCH (10:06)
[2020-07-25] MEDS: PANTOPRAZOLE 40 MG TABLET PO SCH (10:06)
[2020-07-25] MEDS: ATORVASTATIN 80 MG TABLET PO SCH (10:06)
[2020-07-25] MEDS: TICAGRELOR 90 MG TABLET PO SCH ×2 (10:06→23:42)
[2020-07-25] MEDS: carvediloL 25 MG TABLET PO SCH (23:42)
[2020-07-26] MEDS: ACETAMINOPHEN 325 MG TABLET PO PRN (01:31)
[2020-07-26 05:48] LABS: Basophils # 0.1 10*3/uL (0.0-0.2); Basophils % 0.6 % (0.0-0.8); Eosinophils # 0.3 10*3/uL (0.0-0.87); Eosinophils % 2.6 % (0.00-10.9); Hematocrit 32.6 VOL% (42.0-52.0); Hemoglobin 10.9 GM/DL (14.0-18.0); Immature Granulocytes % 0.6 %; Immature Granulocytes Absolute 0.06 #; Lymphocytes % 28.6 % (21.2-54.2); Mean Corpuscular HGB Conc 33.4 GM/DL (32-36); Mean Corpuscular Volume 84.2 FL (87-102); Mean Platelet Volume 11.6 FL (9.6-12.0); Monocytes % 10.3 % (1.7-12.7); Neutrophils % 57.3 % (38.7-73.9); Platelet Count 345 T/CUMM (130-400); Red Blood Count 3.87 MC/CUMM (3.8-5.5); Red Cell Distribution Width 13.4 % (9.3-17.3); White Blood Count 10.3 T/CUMM (4-12)
[2020-07-26 06:09] LABS: Calcium 8.3 MG/DL (8.5-10.1); Osmolality,Calculated 289.4 MOS/KG (273-304); Potassium 5.7 MMOL/L (3.5-5.1)
[2020-07-26] MEDS: INSULIN REGULAR 100 UNIT/ML SUBCUT SCH ×2 (08:23→12:20)
[2020-07-26] MEDS: INSULIN GLARGINE 100 UNIT/ML SUBCUT SCH (08:23)
[2020-07-26] MEDS: ATORVASTATIN 80 MG TABLET PO SCH ×2 (08:34→08:47)
[2020-07-26] MEDS: ASPIRIN CHEW 81 MG TABLET PO SCH ×2 (08:34→08:46)
[2020-07-26] MEDS: cloNIDine 0.1 MG TABLET PO SCH ×2 (08:34→08:46)
[2020-07-26] MEDS: TICAGRELOR 90 MG TABLET PO SCH ×2 (08:34→08:46)
[2020-07-26] MEDS: hydrALAZINE 25 MG TABLET PO SCH ×2 (08:35→08:46)
[2020-07-26] MEDS: PANTOPRAZOLE 40 MG TABLET PO SCH ×2 (08:35→08:47)
[2020-07-26] MEDS: ENOXAPARIN 30 MG/0.3 ML SYRINGE SUBCUT SCH ×2 (08:35→08:47)
[2020-07-26 12:22] VITALS: BP 108/52
== END 2020-07-26 15:59 | DRG 246 ==
LOC: EDBD → EDUNIT# → N.ED 01:08 → N.EDINP 03:18 → N.TELES 12:22
PROVIDERS: ADMIT Family Medicine; ATTEND Family Medicine

== ENCOUNTER 2020-08-15 13:40 | Inpatient (IN) ==
[2020-08-15] MEDS ORDERED: cefTRIAXone 1,000 MG in SODIUM CHLORIDE 0.9% 100 ML IV STA (14:17)
[2020-08-15 14:28] LABS: Basophils # 0.1 10*3/uL (0.0-0.2); Basophils % 0.7 % (0.0-0.8); Eosinophils # 0.2 10*3/uL (0.0-0.87); Eosinophils % 1.3 % (0.00-10.9); Hematocrit 32.6 VOL% (42.0-52.0); Hemoglobin 10.4 GM/DL (14.0-18.0); Immature Granulocytes % 0.7 %; Immature Granulocytes Absolute 0.11 #; Lymphocytes # 3.2 10*3/uL (1.4-4.0); Lymphocytes % 21.2 % (21.2-54.2); Mean Corpuscular HGB Conc 31.9 GM/DL (32-36); Monocytes % 10.3 % (1.7-12.7); Neutrophils % 65.8 % (38.7-73.9); Platelet Count 653 T/CUMM (130-400); Red Blood Count 3.79 MC/CUMM (3.8-5.5); Red Cell Distribution Width 12.9 % (9.3-17.3); White Blood Count 15.1 T/CUMM (4-12)
[2020-08-15 14:35] LABS: Bacteria,Urine Few /HPF (Few); Bilirubin,Urine Negative (Negative); Blood, Urine Small mg/dL (Negative); Glucose,Urine (UA) 150 mg/dL (Negative); Ketones,Urine 5 mg/dL (Negative); Nitrite,Urine Negative (Negative); Protein,Urine >=500 MG/DL; RBC,Urine 2994 /HPF (0-4); Urine Appearance CLOUDY (Clear); Urine Color Yellow (Yellow); Urine Specific Gravity 1.022 (1.001-1.035); Urine Urobilinogen < 2.0 EU/DL (0.2-1.0); WBC,Urine 45307 /HPF (0-6)
[2020-08-15 14:38] LABS: Calcium 10.2 MG/DL (8.5-10.1); Osmolality,Calculated 286.2 MOS/KG (273-304); Potassium 4.4 MMOL/L (3.5-5.1)
[2020-08-15] MEDS ORDERED: ONDANSETRON 4 MG/2 ML VIAL IV PRN (15:58)
[2020-08-15] MEDS ORDERED: GLUCAGON 1 MG VIAL IM PRN (15:58)
[2020-08-15] MEDS ORDERED: DEXTROSE 50% 25 GM/50 ML VIAL IV PRN (15:58)
[2020-08-15] MEDS ORDERED: hydrALAZINE 20 MG/1 ML VIAL IV PRN (17:35)
[2020-08-15] MEDS: INSULIN LISPRO 100 UNIT/ML SUBCUT SCH ×2 (17:53→20:11)
[2020-08-15] MEDS: INSULIN GLARGINE 100 UNIT/ML SUBCUT SCH (20:12)
[2020-08-15] MEDS: ATORVASTATIN 80 MG TABLET PO SCH (20:14)
[2020-08-15] MEDS: ENOXAPARIN 30 MG/0.3 ML SYRINGE SUBCUT SCH (20:14)
[2020-08-15] MEDS: ACETAMINOPHEN 325 MG TABLET PO PRN (20:14)
[2020-08-15] MEDS: TICAGRELOR 90 MG TABLET PO SCH (20:15)
[2020-08-15] MEDS: carvediloL 25 MG TABLET PO SCH (20:15)
[2020-08-15] MEDS: hydrALAZINE 25 MG TABLET PO SCH (20:15)
[2020-08-16 06:14] LABS: Calcium 9.7 MG/DL (8.5-10.1); Osmolality,Calculated 287.2 MOS/KG (273-304); Potassium 5.1 MMOL/L (3.5-5.1)
[2020-08-16 06:16] LABS: Basophils # 0.1 10*3/uL (0.0-0.2); Basophils % 0.8 % (0.0-0.8); Eosinophils # 0.2 10*3/uL (0.0-0.87); Eosinophils % 1.2 % (0.00-10.9); Hematocrit 32.4 VOL% (42.0-52.0); Hemoglobin 10.3 GM/DL (14.0-18.0); Immature Granulocytes % 0.7 %; Immature Granulocytes Absolute 0.09 #; Lymphocytes # 2.8 10*3/uL (1.4-4.0); Lymphocytes % 21.5 % (21.2-54.2); Mean Corpuscular HGB Conc 31.8 GM/DL (32-36); Mean Corpuscular Volume 88.3 FL (87-102); Mean Platelet Volume 10.5 FL (9.6-12.0); Neutrophils % 65.8 % (38.7-73.9); Platelet Count 508 T/CUMM (130-400); Red Blood Count 3.67 MC/CUMM (3.8-5.5); Red Cell Distribution Width 13.1 % (9.3-17.3)
[2020-08-16 06:39] LABS: Hypochromasia 1+; Microcytosis Slight
[2020-08-16] MEDS: INSULIN LISPRO 100 UNIT/ML SUBCUT SCH ×4 (08:09→21:01)
[2020-08-16] MEDS: hydrALAZINE 25 MG TABLET PO SCH ×3 (08:09→22:39)
[2020-08-16] MEDS: PANTOPRAZOLE 40 MG TABLET PO SCH (08:09)
[2020-08-16] MEDS: TICAGRELOR 90 MG TABLET PO SCH ×2 (08:09→22:40)
[2020-08-16] MEDS: INSULIN GLARGINE 100 UNIT/ML SUBCUT SCH ×2 (08:15→21:02)
[2020-08-16] MEDS ORDERED: HEPARIN 10,000 UNIT/10 ML VIAL IV SCH (14:30)
[2020-08-16] MEDS: cefTRIAXone 1,000 MG in SODIUM CHLORIDE 0.9% 100 ML IV SCH (15:43)
[2020-08-16] MEDS: carvediloL 25 MG TABLET PO SCH (22:40)
[2020-08-16] MEDS: ENOXAPARIN 30 MG/0.3 ML SYRINGE SUBCUT SCH (22:40)
[2020-08-16] MEDS: ATORVASTATIN 80 MG TABLET PO SCH (22:40)
[2020-08-17] MEDS: ACETAMINOPHEN 325 MG TABLET PO PRN (08:59)
[2020-08-17] MEDS: PANTOPRAZOLE 40 MG TABLET PO SCH (09:00)
[2020-08-17] MEDS: INSULIN LISPRO 100 UNIT/ML SUBCUT SCH ×4 (09:01→21:09)
[2020-08-17] MEDS: TICAGRELOR 90 MG TABLET PO SCH ×2 (09:02→21:08)
[2020-08-17] MEDS: hydrALAZINE 25 MG TABLET PO SCH ×3 (09:02→20:34)
[2020-08-17] MEDS ORDERED: NITROGLYCERIN SL 0.4 MG TABLET SL PRN (09:09)
[2020-08-17] MEDS: INSULIN GLARGINE 100 UNIT/ML SUBCUT SCH ×2 (09:40→21:09)
[2020-08-17] MEDS: carvediloL 25 MG TABLET PO SCH (21:09)
[2020-08-17] MEDS: ENOXAPARIN 30 MG/0.3 ML SYRINGE SUBCUT SCH (21:10)
[2020-08-17] MEDS: cefTRIAXone 1,000 MG in SODIUM CHLORIDE 0.9% 100 ML IV SCH (21:25)
[2020-08-17] MEDS: ATORVASTATIN 80 MG TABLET PO SCH (21:25)
[2020-08-18 06:07] LABS: Basophils # 0.1 10*3/uL (0.0-0.2); Basophils % 0.5 % (0.0-0.8); Eosinophils # 0.3 10*3/uL (0.0-0.87); Eosinophils % 1.9 % (0.00-10.9); Hematocrit 29.1 VOL% (42.0-52.0); Hemoglobin 9.7 GM/DL (14.0-18.0); Immature Granulocytes % 1.1 %; Immature Granulocytes Absolute 0.17 #; Lymphocytes # 3.7 10*3/uL (1.4-4.0); Lymphocytes % 24.1 % (21.2-54.2); Mean Corpuscular HGB Conc 33.3 GM/DL (32-36); Mean Corpuscular Volume 84.8 FL (87-102); Monocytes % 12.7 % (1.7-12.7); Neutrophils % 59.7 % (38.7-73.9); Platelet Count 545 T/CUMM (130-400); Red Blood Count 3.43 MC/CUMM (3.8-5.5); Red Cell Distribution Width 13.1 % (9.3-17.3); White Blood Count 15.5 T/CUMM (4-12)
[2020-08-18 06:22] LABS: Calcium 9.4 MG/DL (8.5-10.1); Osmolality,Calculated 290.1 MOS/KG (273-304); Potassium 4.7 MMOL/L (3.5-5.1)
[2020-08-18] MEDS: hydrALAZINE 25 MG TABLET PO SCH ×3 (09:33→21:49)
[2020-08-18] MEDS: TICAGRELOR 90 MG TABLET PO SCH ×2 (09:33→21:49)
[2020-08-18] MEDS: PANTOPRAZOLE 40 MG TABLET PO SCH (09:34)
[2020-08-18] MEDS: ASPIRIN EC 81 MG TABLET PO SCH (09:34)
[2020-08-18] MEDS: INSULIN GLARGINE 100 UNIT/ML SUBCUT SCH ×2 (09:35→21:53)
[2020-08-18] MEDS: ACETAMINOPHEN 325 MG TABLET PO PRN ×3 (09:49→21:49)
[2020-08-18] MEDS: INSULIN LISPRO 100 UNIT/ML SUBCUT SCH ×4 (10:14→21:50)
[2020-08-18] MEDS: carvediloL 25 MG TABLET PO SCH (21:49)
[2020-08-18] MEDS: ENOXAPARIN 30 MG/0.3 ML SYRINGE SUBCUT SCH (21:51)
[2020-08-18] MEDS: cefTRIAXone 1,000 MG in SODIUM CHLORIDE 0.9% 100 ML IV SCH (21:51)
[2020-08-18] MEDS: ATORVASTATIN 80 MG TABLET PO SCH (21:51)
[2020-08-19 06:45] LABS: Basophils # 0.1 10*3/uL (0.0-0.2); Basophils % 0.8 % (0.0-0.8); Eosinophils # 0.3 10*3/uL (0.0-0.87); Eosinophils % 2.1 % (0.00-10.9); Hematocrit 30.8 VOL% (42.0-52.0); Immature Granulocytes % 1.1 %; Immature Granulocytes Absolute 0.16 #; Lymphocytes # 3.5 10*3/uL (1.4-4.0); Lymphocytes % 23.7 % (21.2-54.2); Mean Corpuscular HGB Conc 32.5 GM/DL (32-36); Mean Corpuscular Volume 85.8 FL (87-102); Mean Platelet Volume 10.2 FL (9.6-12.0); Monocytes % 12.4 % (1.7-12.7); Neutrophils % 59.9 % (38.7-73.9); Platelet Count 523 T/CUMM (130-400); Red Blood Count 3.59 MC/CUMM (3.8-5.5); Red Cell Distribution Width 13.4 % (9.3-17.3); White Blood Count 14.6 T/CUMM (4-12)
[2020-08-19 07:11] LABS: Calcium 9.3 MG/DL (8.5-10.1); Potassium 4.8 MMOL/L (3.5-5.1)
[2020-08-19] MEDS: TICAGRELOR 90 MG TABLET PO SCH ×2 (08:46→21:41)
[2020-08-19] MEDS: PANTOPRAZOLE 40 MG TABLET PO SCH (08:46)
[2020-08-19] MEDS: hydrALAZINE 25 MG TABLET PO SCH ×3 (08:46→21:40)
[2020-08-19] MEDS: ASPIRIN EC 81 MG TABLET PO SCH (08:46)
[2020-08-19] MEDS: INSULIN GLARGINE 100 UNIT/ML SUBCUT SCH ×2 (08:47→21:41)
[2020-08-19] MEDS: INSULIN LISPRO 100 UNIT/ML SUBCUT SCH ×4 (10:52→21:41)
[2020-08-19] MEDS: cefTRIAXone 1,000 MG in SODIUM CHLORIDE 0.9% 100 ML IV SCH (21:40)
[2020-08-19] MEDS: carvediloL 25 MG TABLET PO SCH (21:40)
[2020-08-19] MEDS: ATORVASTATIN 80 MG TABLET PO SCH (21:41)
[2020-08-19] MEDS: ENOXAPARIN 30 MG/0.3 ML SYRINGE SUBCUT SCH (21:42)
[2020-08-20] MEDS: ACETAMINOPHEN 325 MG TABLET PO PRN ×3 (03:48→21:58)
[2020-08-20 06:20] LABS: Basophils # 0.1 10*3/uL (0.0-0.2); Basophils % 0.5 % (0.0-0.8); Eosinophils # 0.3 10*3/uL (0.0-0.87); Eosinophils % 2.2 % (0.00-10.9); Hematocrit 29.1 VOL% (42.0-52.0); Hemoglobin 9.5 GM/DL (14.0-18.0); Immature Granulocytes % 1.2 %; Immature Granulocytes Absolute 0.15 #; Lymphocytes # 3.7 10*3/uL (1.4-4.0); Lymphocytes % 28.3 % (21.2-54.2); Mean Corpuscular HGB Conc 32.6 GM/DL (32-36); Mean Corpuscular Volume 85.6 FL (87-102); Mean Platelet Volume 10.2 FL (9.6-12.0); Monocytes % 11.5 % (1.7-12.7); Neutrophils % 56.3 % (38.7-73.9); Platelet Count 503 T/CUMM (130-400); Red Cell Distribution Width 13.5 % (9.3-17.3)
[2020-08-20 06:37] LABS: Calcium 9.2 MG/DL (8.5-10.1); Osmolality,Calculated 289.8 MOS/KG (273-304); Potassium 5.2 MMOL/L (3.5-5.1)
[2020-08-20] MEDS: INSULIN LISPRO 100 UNIT/ML SUBCUT SCH ×4 (08:12→21:36)
[2020-08-20] MEDS: INSULIN GLARGINE 100 UNIT/ML SUBCUT SCH ×2 (08:39→22:00)
[2020-08-20] MEDS: TICAGRELOR 90 MG TABLET PO SCH ×2 (10:47→21:58)
[2020-08-20] MEDS: ASPIRIN EC 81 MG TABLET PO SCH (10:47)
[2020-08-20] MEDS: PANTOPRAZOLE 40 MG TABLET PO SCH (10:47)
[2020-08-20] MEDS: hydrALAZINE 25 MG TABLET PO SCH ×3 (10:47→22:00)
[2020-08-20] MEDS: ISOSORBIDE DINITRATE 20 MG TABLET PO SCH ×2 (18:00→22:00)
[2020-08-20] MEDS: cloNIDine 0.1 MG TABLET PO SCH ×2 (18:00→22:00)
[2020-08-20] MEDS: ENOXAPARIN 30 MG/0.3 ML SYRINGE SUBCUT SCH (21:58)
[2020-08-20] MEDS: ATORVASTATIN 80 MG TABLET PO SCH (21:58)
[2020-08-20] MEDS: carvediloL 25 MG TABLET PO SCH (21:58)
[2020-08-20] MEDS: cefTRIAXone 1,000 MG in SODIUM CHLORIDE 0.9% 100 ML IV SCH (21:59)
[2020-08-21] MEDS: ACETAMINOPHEN 325 MG TABLET PO PRN ×2 (03:53→22:06)
[2020-08-21] MEDS: INSULIN LISPRO 100 UNIT/ML SUBCUT SCH ×4 (06:58→21:23)
[2020-08-21] MEDS: TICAGRELOR 90 MG TABLET PO SCH ×2 (08:07→22:07)
[2020-08-21] MEDS: ASPIRIN EC 81 MG TABLET PO SCH (08:07)
[2020-08-21] MEDS: PANTOPRAZOLE 40 MG TABLET PO SCH (08:07)
[2020-08-21] MEDS: INSULIN GLARGINE 100 UNIT/ML SUBCUT SCH ×2 (08:07→21:23)
[2020-08-21] MEDS: ISOSORBIDE DINITRATE 20 MG TABLET PO SCH ×3 (08:07→21:54)
[2020-08-21] MEDS: cloNIDine 0.1 MG TABLET PO SCH ×3 (08:07→21:54)
[2020-08-21] MEDS: hydrALAZINE 25 MG TABLET PO SCH ×3 (08:07→21:54)
[2020-08-21] MEDS: ENOXAPARIN 30 MG/0.3 ML SYRINGE SUBCUT SCH (22:06)
[2020-08-21] MEDS: cefTRIAXone 1,000 MG in SODIUM CHLORIDE 0.9% 100 ML IV SCH (22:07)
[2020-08-21] MEDS: carvediloL 25 MG TABLET PO SCH (22:07)
[2020-08-21] MEDS: ATORVASTATIN 80 MG TABLET PO SCH (22:08)
[2020-08-22 05:08] LABS: Basophils # 0.1 10*3/uL (0.0-0.2); Basophils % 0.7 % (0.0-0.8); Eosinophils # 0.2 10*3/uL (0.0-0.87); Eosinophils % 1.8 % (0.00-10.9); Hematocrit 30.2 VOL% (42.0-52.0); Hemoglobin 9.7 GM/DL (14.0-18.0); Immature Granulocytes % 0.7 %; Immature Granulocytes Absolute 0.09 #; Lymphocytes # 3.2 10*3/uL (1.4-4.0); Lymphocytes % 24.3 % (21.2-54.2); Mean Corpuscular HGB Conc 32.1 GM/DL (32-36); Mean Platelet Volume 10.2 FL (9.6-12.0); Monocytes % 10.7 % (1.7-12.7); Neutrophils % 61.8 % (38.7-73.9); Platelet Count 480 T/CUMM (130-400); Red Blood Count 3.47 MC/CUMM (3.8-5.5); Red Cell Distribution Width 13.4 % (9.3-17.3); White Blood Count 13.1 T/CUMM (4-12)
[2020-08-22 05:30] LABS: Osmolality,Calculated 284.2 MOS/KG (273-304); Potassium 4.8 MMOL/L (3.5-5.1)
[2020-08-22] MEDS: INSULIN LISPRO 100 UNIT/ML SUBCUT SCH ×4 (07:34→22:30)
[2020-08-22] MEDS: INSULIN GLARGINE 100 UNIT/ML SUBCUT SCH ×2 (08:15→22:31)
[2020-08-22] MEDS: ACETAMINOPHEN 325 MG TABLET PO PRN ×2 (08:17→22:33)
[2020-08-22] MEDS: ASPIRIN EC 81 MG TABLET PO SCH (08:17)
[2020-08-22] MEDS: cloNIDine 0.1 MG TABLET PO SCH ×3 (08:17→22:33)
[2020-08-22] MEDS: PANTOPRAZOLE 40 MG TABLET PO SCH (08:17)
[2020-08-22] MEDS: hydrALAZINE 25 MG TABLET PO SCH ×3 (08:17→22:30)
[2020-08-22] MEDS: ISOSORBIDE DINITRATE 20 MG TABLET PO SCH ×3 (08:17→22:31)
[2020-08-22] MEDS: TICAGRELOR 90 MG TABLET PO SCH ×2 (08:17→22:34)
[2020-08-22] MEDS: cefTRIAXone 1,000 MG in SODIUM CHLORIDE 0.9% 100 ML IV SCH (22:31)
[2020-08-22] MEDS: carvediloL 25 MG TABLET PO SCH (22:32)
[2020-08-22] MEDS: ATORVASTATIN 80 MG TABLET PO SCH (22:32)
[2020-08-22] MEDS: ENOXAPARIN 30 MG/0.3 ML SYRINGE SUBCUT SCH (22:32)
[2020-08-23] MEDS: INSULIN LISPRO 100 UNIT/ML SUBCUT SCH ×3 (07:52→16:24)
[2020-08-23] MEDS: cloNIDine 0.1 MG TABLET PO SCH ×3 (09:17→21:06)
[2020-08-23] MEDS: PANTOPRAZOLE 40 MG TABLET PO SCH (09:17)
[2020-08-23] MEDS: hydrALAZINE 25 MG TABLET PO SCH ×3 (09:17→21:07)
[2020-08-23] MEDS: TICAGRELOR 90 MG TABLET PO SCH ×2 (09:17→21:06)
[2020-08-23] MEDS: ISOSORBIDE DINITRATE 20 MG TABLET PO SCH ×3 (09:17→21:06)
[2020-08-23] MEDS: ASPIRIN EC 81 MG TABLET PO SCH (09:17)
[2020-08-23] MEDS: ACETAMINOPHEN 325 MG TABLET PO PRN (09:17)
[2020-08-23] MEDS: INSULIN GLARGINE 100 UNIT/ML SUBCUT SCH (09:18)
[2020-08-23] MEDS: carvediloL 25 MG TABLET PO SCH (21:06)
[2020-08-23] MEDS: ATORVASTATIN 80 MG TABLET PO SCH (21:06)
[2020-08-23] MEDS: cefTRIAXone 1,000 MG in SODIUM CHLORIDE 0.9% 100 ML IV SCH (21:07)
[2020-08-23] MEDS: ENOXAPARIN 30 MG/0.3 ML SYRINGE SUBCUT SCH (21:07)
[2020-08-24 05:26] LABS: Basophils # 0.1 10*3/uL (0.0-0.2); Basophils % 0.8 % (0.0-0.8); Eosinophils # 0.3 10*3/uL (0.0-0.87); Eosinophils % 2.5 % (0.00-10.9); Hemoglobin 8.9 GM/DL (14.0-18.0); Immature Granulocytes % 0.6 %; Immature Granulocytes Absolute 0.06 #; Lymphocytes # 3.1 10*3/uL (1.4-4.0); Lymphocytes % 29.9 % (21.2-54.2); Mean Corpuscular Volume 84.6 FL (87-102); Mean Platelet Volume 10.5 FL (9.6-12.0); Monocytes % 10.2 % (1.7-12.7); Platelet Count 448 T/CUMM (130-400); Red Blood Count 3.19 MC/CUMM (3.8-5.5); Red Cell Distribution Width 13.4 % (9.3-17.3); White Blood Count 10.4 T/CUMM (4-12)
[2020-08-24 05:59] LABS: Calcium 8.8 MG/DL (8.5-10.1); Osmolality,Calculated 284.8 MOS/KG (273-304)
[2020-08-24] MEDS: INSULIN LISPRO 100 UNIT/ML SUBCUT SCH ×5 (08:16→22:54)
[2020-08-24] MEDS: ISOSORBIDE DINITRATE 20 MG TABLET PO SCH ×3 (08:17→21:37)
[2020-08-24] MEDS: cloNIDine 0.1 MG TABLET PO SCH ×3 (08:17→21:37)
[2020-08-24] MEDS: ACETAMINOPHEN 325 MG TABLET PO PRN (08:17)
[2020-08-24] MEDS: ASPIRIN EC 81 MG TABLET PO SCH (08:17)
[2020-08-24] MEDS: TICAGRELOR 90 MG TABLET PO SCH ×2 (08:17→21:40)
[2020-08-24] MEDS: PANTOPRAZOLE 40 MG TABLET PO SCH (08:17)
[2020-08-24] MEDS: hydrALAZINE 25 MG TABLET PO SCH ×3 (08:17→21:37)
[2020-08-24] MEDS: INSULIN GLARGINE 100 UNIT/ML SUBCUT SCH ×3 (08:18→22:55)
[2020-08-24] MEDS: ALFUZOSIN 10 MG TABLET PO SCH (08:19)
[2020-08-24] MEDS: ATORVASTATIN 80 MG TABLET PO SCH (21:36)
[2020-08-24] MEDS: carvediloL 25 MG TABLET PO SCH (21:37)
[2020-08-24] MEDS: ENOXAPARIN 30 MG/0.3 ML SYRINGE SUBCUT SCH (21:37)
[2020-08-24] MEDS: cefTRIAXone 1,000 MG in SODIUM CHLORIDE 0.9% 100 ML IV SCH (21:37)
[2020-08-25 07:01] LABS: Basophils # 0.1 10*3/uL (0.0-0.2); Basophils % 0.6 % (0.0-0.8); Eosinophils # 0.2 10*3/uL (0.0-0.87); Eosinophils % 2.2 % (0.00-10.9); Hemoglobin 8.6 GM/DL (14.0-18.0); Immature Granulocytes % 0.7 %; Immature Granulocytes Absolute 0.07 #; Lymphocytes # 2.6 10*3/uL (1.4-4.0); Lymphocytes % 23.7 % (21.2-54.2); Mean Corpuscular HGB Conc 31.9 GM/DL (32-36); Mean Corpuscular Volume 87.4 FL (87-102); Mean Platelet Volume 10.4 FL (9.6-12.0); Neutrophils % 65.8 % (38.7-73.9); Platelet Count 432 T/CUMM (130-400); Red Blood Count 3.09 MC/CUMM (3.8-5.5); Red Cell Distribution Width 13.6 % (9.3-17.3); White Blood Count 10.8 T/CUMM (4-12)
[2020-08-25 07:19] LABS: Calcium 8.6 MG/DL (8.5-10.1); Osmolality,Calculated 290.8 MOS/KG (273-304); Potassium 5.3 MMOL/L (3.5-5.1)
[2020-08-25] MEDS: ASPIRIN EC 81 MG TABLET PO SCH (08:22)
[2020-08-25] MEDS: ACETAMINOPHEN 325 MG TABLET PO PRN (08:22)
[2020-08-25] MEDS: ALFUZOSIN 10 MG TABLET PO SCH (08:22)
[2020-08-25] MEDS: ISOSORBIDE DINITRATE 20 MG TABLET PO SCH ×3 (08:22→20:49)
[2020-08-25] MEDS: PANTOPRAZOLE 40 MG TABLET PO SCH (08:22)
[2020-08-25] MEDS: INSULIN GLARGINE 100 UNIT/ML SUBCUT SCH ×3 (08:23→20:51)
[2020-08-25] MEDS: INSULIN LISPRO 100 UNIT/ML SUBCUT SCH ×4 (08:23→22:12)
[2020-08-25] MEDS: cloNIDine 0.1 MG TABLET PO SCH ×3 (08:25→20:49)
[2020-08-25] MEDS: hydrALAZINE 25 MG TABLET PO SCH ×3 (08:25→20:49)
[2020-08-25] MEDS: TICAGRELOR 90 MG TABLET PO SCH ×2 (08:28→20:49)
[2020-08-25] MEDS ORDERED: TUBERCULIN SKIN TEST 0.1 ML SYRINGE INTRADERM ONE (14:48)
[2020-08-25] MEDS: carvediloL 25 MG TABLET PO SCH (20:49)
[2020-08-25] MEDS: ATORVASTATIN 80 MG TABLET PO SCH (20:49)
[2020-08-25] MEDS: ENOXAPARIN 30 MG/0.3 ML SYRINGE SUBCUT SCH (20:49)
[2020-08-25] MEDS: cefTRIAXone 1,000 MG in SODIUM CHLORIDE 0.9% 100 ML IV SCH (20:58)
[2020-08-26 05:25] LABS: Basophils # 0.1 10*3/uL (0.0-0.2); Basophils % 0.6 % (0.0-0.8); Eosinophils # 0.3 10*3/uL (0.0-0.87); Eosinophils % 2.4 % (0.00-10.9); Hemoglobin 8.5 GM/DL (14.0-18.0); Immature Granulocytes % 0.4 %; Immature Granulocytes Absolute 0.05 #; Lymphocytes # 2.8 10*3/uL (1.4-4.0); Mean Corpuscular HGB Conc 31.5 GM/DL (32-36); Mean Corpuscular Volume 87.1 FL (87-102); Mean Platelet Volume 10.4 FL (9.6-12.0); Monocytes % 9.2 % (1.7-12.7); Neutrophils % 62.4 % (38.7-73.9); Platelet Count 430 T/CUMM (130-400); Red Cell Distribution Width 13.5 % (9.3-17.3); White Blood Count 11.4 T/CUMM (4-12)
[2020-08-26 05:39] LABS: Osmolality,Calculated 285.5 MOS/KG (273-304); Potassium 5.2 MMOL/L (3.5-5.1)
[2020-08-26] MEDS ORDERED: MAGNESIUM SULF RIDER 2 GM/50 ML PREMIX IV PRN (07:54)
[2020-08-26] MEDS ORDERED: MAGNESIUM SULF RIDER 4 GM/100 ML PREMIX IV PRN (07:54)
[2020-08-26] MEDS: hydrALAZINE 25 MG TABLET PO SCH (08:54)
[2020-08-26] MEDS: cloNIDine 0.1 MG TABLET PO SCH (08:54)
[2020-08-26] MEDS: ISOSORBIDE DINITRATE 20 MG TABLET PO SCH (08:54)
[2020-08-26] MEDS: INSULIN LISPRO 100 UNIT/ML SUBCUT SCH ×2 (08:54→13:50)
[2020-08-26] MEDS: TICAGRELOR 90 MG TABLET PO SCH (08:54)
[2020-08-26] MEDS: PANTOPRAZOLE 40 MG TABLET PO SCH (08:54)
[2020-08-26] MEDS: ALFUZOSIN 10 MG TABLET PO SCH (08:54)
[2020-08-26] MEDS: ASPIRIN EC 81 MG TABLET PO SCH (08:54)
[2020-08-26] MEDS: INSULIN GLARGINE 100 UNIT/ML SUBCUT SCH (09:51)
[2020-08-26 12:20] VITALS: BP 119/61
== END 2020-08-26 13:49 | disposition swing bed (61) | DRG 689 ==
LOC: EDUNIT# → EDBD → N.ED 13:40 → N.EDINP 15:58 → N.5E 16:46
PROVIDERS: ADMIT Family Medicine; ATTEND Family Medicine

== ENCOUNTER 2020-08-28 13:37 | Inpatient (IN) ==
[2020-08-28 15:02] LABS: Basophils # 0.1 10*3/uL (0.0-0.2); Basophils % 0.8 % (0.0-0.8); Eosinophils # 0.2 10*3/uL (0.0-0.87); Eosinophils % 1.5 % (0.00-10.9); Hematocrit 26.3 VOL% (42.0-52.0); Hemoglobin 8.3 GM/DL (14.0-18.0); Immature Granulocytes % 0.4 %; Immature Granulocytes Absolute 0.04 #; Lymphocytes # 2.7 10*3/uL (1.4-4.0); Lymphocytes % 26.6 % (21.2-54.2); Mean Corpuscular HGB Conc 31.6 GM/DL (32-36); Mean Corpuscular Volume 86.5 FL (87-102); Mean Platelet Volume 10.6 FL (9.6-12.0); Monocytes % 12.2 % (1.7-12.7); Neutrophils % 58.5 % (38.7-73.9); Platelet Count 453 T/CUMM (130-400); Red Blood Count 3.04 MC/CUMM (3.8-5.5); Red Cell Distribution Width 13.5 % (9.3-17.3)
[2020-08-28 15:08] LABS: Albumin 2.7 G/DL (3.4-5.0); Bilirubin,Total 0.4 MG/DL (0.2-1.0); Calcium 8.9 MG/DL (8.5-10.1); Osmolality,Calculated 280.7 MOS/KG (273-304); Potassium 4.2 MMOL/L (3.5-5.1); Total Protein 7.7 G/DL (6.4-8.2)
[2020-08-28 15:16] LABS: INR 1.1; PT Patient Result 12.4 SECS (10.5-12.0); Partial Thromboplastin Time 28.8 SECS (23.9-33.8)
[2020-08-28] MEDS ORDERED: cefTRIAXone 1,000 MG in SODIUM CHLORIDE 0.9% 100 ML IV STA (16:01)
[2020-08-28] MEDS ORDERED: GLUCAGON 1 MG VIAL IM PRN (16:04)
[2020-08-28] MEDS ORDERED: ONDANSETRON 4 MG/2 ML VIAL IV PRN (16:04)
[2020-08-28] MEDS ORDERED: DEXTROSE 50% 25 GM/50 ML VIAL IV PRN (16:04)
[2020-08-28] MEDS ORDERED: ACETAMINOPHEN 325 MG TABLET PO PRN (16:04)
[2020-08-28] MEDS ORDERED: NITROGLYCERIN SL 0.4 MG TABLET SL PRN (16:10)
[2020-08-28 16:42] LABS: Bilirubin,Urine Negative (Negative); Blood, Urine Moderate mg/dL (Negative); Glucose,Urine (UA) 150 mg/dL (Negative); Hyaline Casts,Urine 9 /LPF (0-3); Ketones,Urine Negative (Negative); Mucus,Urine Occasional /LPF (Occasional); Nitrite,Urine Negative (Negative); Protein,Urine 100 MG/DL; RBC,Urine 34 /HPF (0-4); Urine Appearance CLOUDY (Clear); Urine Color Yellow (Yellow); Urine Specific Gravity 1.011 (1.001-1.035); Urine Urobilinogen < 2.0 EU/DL (0.2-1.0)
[2020-08-28] MEDS: INSULIN LISPRO 100 UNIT/ML SUBCUT SCH ×2 (22:04→22:05)
[2020-08-28] MEDS: cloNIDine 0.1 MG TABLET PO SCH (22:05)
[2020-08-28] MEDS: TICAGRELOR 90 MG TABLET PO SCH (22:05)
[2020-08-28] MEDS: hydrALAZINE 25 MG TABLET PO SCH (22:05)
[2020-08-28] MEDS: carvediloL 25 MG TABLET PO SCH (22:06)
[2020-08-28] MEDS: TAMSULOSIN 0.4 MG CAPSULE PO SCH (22:06)
[2020-08-28] MEDS: ISOSORBIDE DINITRATE 20 MG TABLET PO SCH (22:06)
[2020-08-28] MEDS: ATORVASTATIN 80 MG TABLET PO SCH (22:06)
[2020-08-28] MEDS: ENOXAPARIN 30 MG/0.3 ML SYRINGE SUBCUT SCH (22:06)
[2020-08-28] MEDS: DOCUSATE SODIUM 100 MG CAPSULE PO SCH (22:06)
[2020-08-28] MEDS: INSULIN GLARGINE 100 UNIT/ML SUBCUT SCH (22:07)
[2020-08-28] MEDS: SODIUM CHLORIDE 0.45% 1,000 ML IV SCH (23:11)
[2020-08-29 05:42] LABS: Calcium 9.1 MG/DL (8.5-10.1); Osmolality,Calculated 283.8 MOS/KG (273-304); Potassium 4.4 MMOL/L (3.5-5.1)
[2020-08-29] MEDS: DOCUSATE SODIUM 100 MG CAPSULE PO SCH ×2 (09:37→21:24)
[2020-08-29] MEDS: hydrALAZINE 25 MG TABLET PO SCH ×3 (09:37→21:24)
[2020-08-29] MEDS: TICAGRELOR 90 MG TABLET PO SCH ×2 (09:37→21:24)
[2020-08-29] MEDS: INSULIN LISPRO 100 UNIT/ML SUBCUT SCH ×4 (09:37→21:25)
[2020-08-29] MEDS: cloNIDine 0.1 MG TABLET PO SCH ×3 (09:37→21:24)
[2020-08-29] MEDS: ASPIRIN EC 81 MG TABLET PO SCH (09:37)
[2020-08-29] MEDS: ALFUZOSIN 10 MG TABLET PO SCH (09:38)
[2020-08-29] MEDS: INSULIN GLARGINE 100 UNIT/ML SUBCUT SCH ×2 (09:38→21:26)
[2020-08-29] MEDS: ISOSORBIDE DINITRATE 20 MG TABLET PO SCH ×3 (09:38→21:24)
[2020-08-29] MEDS: PANTOPRAZOLE 40 MG TABLET PO SCH (09:38)
[2020-08-29] MEDS: SODIUM CHLORIDE 0.45% 1,000 ML IV SCH (13:35)
[2020-08-29] MEDS: ENOXAPARIN 30 MG/0.3 ML SYRINGE SUBCUT SCH (21:24)
[2020-08-29] MEDS: carvediloL 25 MG TABLET PO SCH (21:24)
[2020-08-29] MEDS: TAMSULOSIN 0.4 MG CAPSULE PO SCH (21:24)
[2020-08-29] MEDS: ATORVASTATIN 80 MG TABLET PO SCH (21:24)
[2020-08-30 05:54] LABS: Basophils # 0.1 10*3/uL (0.0-0.2); Basophils % 0.7 % (0.0-0.8); Eosinophils # 0.2 10*3/uL (0.0-0.87); Eosinophils % 1.4 % (0.00-10.9); Hematocrit 26.9 VOL% (42.0-52.0); Hemoglobin 8.6 GM/DL (14.0-18.0); Immature Granulocytes % 0.6 %; Immature Granulocytes Absolute 0.08 #; Lymphocytes # 3.1 10*3/uL (1.4-4.0); Lymphocytes % 22.2 % (21.2-54.2); Mean Corpuscular Volume 87.3 FL (87-102); Neutrophils % 65.1 % (38.7-73.9); Platelet Count 452 T/CUMM (130-400); Red Blood Count 3.08 MC/CUMM (3.8-5.5); Red Cell Distribution Width 13.3 % (9.3-17.3); White Blood Count 13.8 T/CUMM (4-12)
[2020-08-30 06:32] LABS: Alanine Aminotransferase 27 U/L (16-61); Albumin 2.7 G/DL (3.4-5.0); Alkaline Phosphatase 63 U/L (45-117); Aspartate Amino Transferase 35 U/L (0-37); Bilirubin,Total < 0.39 MG/DL (0.2-1.0); Blood Urea Nitrogen 54 MG/DL (7-18); Calcium 8.8 MG/DL (8.5-10.1); Carbon Dioxide 29 MMOL/L (21-32); Estimated Glom Filtration Rate 7 ML/MIN; Glucose 78 MG/DL (74-106); Osmolality,Calculated 286.8 MOS/KG (273-304); Potassium 4.7 MMOL/L (3.5-5.1); Sodium 137 MMOL/L (136-145); Total Protein 7.4 G/DL (6.4-8.2)
[2020-08-30] MEDS: cloNIDine 0.1 MG TABLET PO SCH ×3 (09:55→21:43)
[2020-08-30] MEDS: hydrALAZINE 25 MG TABLET PO SCH ×3 (09:55→21:44)
[2020-08-30] MEDS ORDERED: HEPARIN 10,000 UNIT/10 ML VIAL IV SCH (15:00)
[2020-08-30] MEDS: ALFUZOSIN 10 MG TABLET PO SCH (17:19)
[2020-08-30] MEDS: DOCUSATE SODIUM 100 MG CAPSULE PO SCH ×2 (17:19→21:43)
[2020-08-30] MEDS: ISOSORBIDE DINITRATE 20 MG TABLET PO SCH ×3 (17:20→21:44)
[2020-08-30] MEDS: ASPIRIN EC 81 MG TABLET PO SCH (17:20)
[2020-08-30] MEDS: PANTOPRAZOLE 40 MG TABLET PO SCH (17:20)
[2020-08-30] MEDS: TICAGRELOR 90 MG TABLET PO SCH ×2 (17:21→21:44)
[2020-08-30] MEDS: INSULIN GLARGINE 100 UNIT/ML SUBCUT SCH ×2 (17:22→23:24)
[2020-08-30] MEDS: INSULIN LISPRO 100 UNIT/ML SUBCUT SCH ×3 (18:01→23:23)
[2020-08-30] MEDS: SODIUM CHLORIDE 0.45% 1,000 ML IV SCH (18:36)
[2020-08-30] MEDS: ENOXAPARIN 30 MG/0.3 ML SYRINGE SUBCUT SCH (21:43)
[2020-08-30] MEDS: carvediloL 25 MG TABLET PO SCH (21:44)
[2020-08-30] MEDS: ATORVASTATIN 80 MG TABLET PO SCH (21:44)
[2020-08-30] MEDS: TAMSULOSIN 0.4 MG CAPSULE PO SCH (21:44)
[2020-08-31] MEDS: INSULIN LISPRO 100 UNIT/ML SUBCUT SCH ×4 (08:45→21:40)
[2020-08-31] MEDS: SODIUM CHLORIDE 0.45% 1,000 ML IV SCH (08:45)
[2020-08-31] MEDS: INSULIN GLARGINE 100 UNIT/ML SUBCUT SCH ×2 (10:17→21:45)
[2020-08-31] MEDS: hydrALAZINE 25 MG TABLET PO SCH ×3 (10:18→21:10)
[2020-08-31] MEDS: TICAGRELOR 90 MG TABLET PO SCH ×2 (10:18→21:12)
[2020-08-31] MEDS: ISOSORBIDE DINITRATE 20 MG TABLET PO SCH ×3 (10:18→21:31)
[2020-08-31] MEDS: ASPIRIN EC 81 MG TABLET PO SCH (10:18)
[2020-08-31] MEDS: DOCUSATE SODIUM 100 MG CAPSULE PO SCH ×2 (10:18→22:25)
[2020-08-31] MEDS: PANTOPRAZOLE 40 MG TABLET PO SCH (10:18)
[2020-08-31] MEDS: ALFUZOSIN 10 MG TABLET PO SCH (10:18)
[2020-08-31] MEDS: cloNIDine 0.1 MG TABLET PO SCH ×3 (10:18→22:25)
[2020-08-31] MEDS ORDERED: ALUM/MAG/SIMETH/LIDO VISC 1:1 30 ML BOTTLE PO ONE (13:58)
[2020-08-31] MEDS: SKIN HEALING OINT (AQUAPHOR) 50 GM TUBE TOP SCH (15:30)
[2020-08-31] MEDS: MENTHOL/ZINC OXIDE OINT 71 GM JAR TOP SCH ×2 (15:30→21:15)
[2020-08-31] MEDS: carvediloL 25 MG TABLET PO SCH (21:16)
[2020-08-31] MEDS: TAMSULOSIN 0.4 MG CAPSULE PO SCH (21:18)
[2020-08-31] MEDS: ATORVASTATIN 80 MG TABLET PO SCH (21:36)
[2020-08-31] MEDS: ENOXAPARIN 30 MG/0.3 ML SYRINGE SUBCUT SCH (21:45)
[2020-09-01] MEDS ORDERED: SODIUM CHLORIDE 0.9% 500 ML IV ONE ×2 (00:35→01:30)
[2020-09-01] MEDS: SODIUM CHLORIDE 0.45% 1,000 ML IV SCH (03:30)
[2020-09-01 05:21] LABS: Basophils # 0.1 10*3/uL (0.0-0.2); Basophils % 0.8 % (0.0-0.8); Eosinophils # 0.2 10*3/uL (0.0-0.87); Eosinophils % 1.5 % (0.00-10.9); Hematocrit 24.5 VOL% (42.0-52.0); Hemoglobin 7.7 GM/DL (14.0-18.0); Immature Granulocytes % 0.6 %; Immature Granulocytes Absolute 0.07 #; Lymphocytes # 2.7 10*3/uL (1.4-4.0); Lymphocytes % 22.1 % (21.2-54.2); Mean Corpuscular HGB Conc 31.4 GM/DL (32-36); Mean Corpuscular Volume 86.6 FL (87-102); Mean Platelet Volume 10.8 FL (9.6-12.0); Monocytes % 11.8 % (1.7-12.7); Neutrophils % 63.2 % (38.7-73.9); Platelet Count 403 T/CUMM (130-400); Red Blood Count 2.83 MC/CUMM (3.8-5.5); Red Cell Distribution Width 13.2 % (9.3-17.3); White Blood Count 12.3 T/CUMM (4-12)
[2020-09-01 05:57] LABS: Albumin 2.5 G/DL (3.4-5.0); Bilirubin,Total 0.6 MG/DL (0.2-1.0); Calcium 8.4 MG/DL (8.5-10.1); Osmolality,Calculated 279.4 MOS/KG (273-304); Potassium 5.2 MMOL/L (3.5-5.1)
[2020-09-01] MEDS: INSULIN LISPRO 100 UNIT/ML SUBCUT SCH ×4 (09:18→21:48)
[2020-09-01] MEDS: INSULIN GLARGINE 100 UNIT/ML SUBCUT SCH ×2 (09:18→21:48)
[2020-09-01] MEDS: hydrALAZINE 25 MG TABLET PO SCH ×4 (10:04→21:47)
[2020-09-01] MEDS: SKIN HEALING OINT (AQUAPHOR) 50 GM TUBE TOP SCH ×2 (10:04→14:08)
[2020-09-01] MEDS: ASPIRIN EC 81 MG TABLET PO SCH ×2 (10:04→13:55)
[2020-09-01] MEDS: cloNIDine 0.1 MG TABLET PO SCH ×4 (10:05→21:48)
[2020-09-01] MEDS: MENTHOL/ZINC OXIDE OINT 71 GM JAR TOP SCH ×3 (10:05→21:47)
[2020-09-01] MEDS: ISOSORBIDE DINITRATE 20 MG TABLET PO SCH ×4 (10:05→21:48)
[2020-09-01] MEDS: PANTOPRAZOLE 40 MG TABLET PO SCH ×2 (10:05→13:55)
[2020-09-01] MEDS: DOCUSATE SODIUM 100 MG CAPSULE PO SCH ×3 (10:05→21:48)
[2020-09-01] MEDS: ALFUZOSIN 10 MG TABLET PO SCH ×2 (10:05→13:55)
[2020-09-01] MEDS: TICAGRELOR 90 MG TABLET PO SCH ×3 (10:05→21:47)
[2020-09-01] MEDS: ENOXAPARIN 30 MG/0.3 ML SYRINGE SUBCUT SCH (21:48)
[2020-09-01] MEDS: ATORVASTATIN 80 MG TABLET PO SCH (21:48)
[2020-09-01] MEDS: carvediloL 25 MG TABLET PO SCH (21:48)
[2020-09-01] MEDS: TAMSULOSIN 0.4 MG CAPSULE PO SCH (21:48)
[2020-09-02] MEDS: SODIUM CHLORIDE 0.45% 1,000 ML IV SCH (03:42)
[2020-09-02 05:21] LABS: Basophils # 0.1 10*3/uL (0.0-0.2); Basophils % 0.7 % (0.0-0.8); Eosinophils # 0.2 10*3/uL (0.0-0.87); Eosinophils % 1.9 % (0.00-10.9); Hematocrit 24.6 VOL% (42.0-52.0); Immature Granulocytes % 0.4 %; Immature Granulocytes Absolute 0.04 #; Lymphocytes # 2.9 10*3/uL (1.4-4.0); Lymphocytes % 25.4 % (21.2-54.2); Mean Corpuscular HGB Conc 32.5 GM/DL (32-36); Mean Corpuscular Volume 85.4 FL (87-102); Mean Platelet Volume 11.4 FL (9.6-12.0); Monocytes % 13.9 % (1.7-12.7); Neutrophils % 57.7 % (38.7-73.9); Platelet Count 372 T/CUMM (130-400); Red Blood Count 2.88 MC/CUMM (3.8-5.5); Red Cell Distribution Width 13.1 % (9.3-17.3); White Blood Count 11.3 T/CUMM (4-12)
[2020-09-02 05:36] LABS: Calcium 8.5 MG/DL (8.5-10.1); Potassium 4.5 MMOL/L (3.5-5.1)
[2020-09-02 05:41] LABS: Hypochromasia 1+; Microcytosis 1+; Platelet Estimate Adequate
[2020-09-02] MEDS: INSULIN LISPRO 100 UNIT/ML SUBCUT SCH ×2 (08:11→11:54)
[2020-09-02] MEDS: hydrALAZINE 25 MG TABLET PO SCH ×2 (08:36→15:58)
[2020-09-02] MEDS: ISOSORBIDE DINITRATE 20 MG TABLET PO SCH ×2 (08:36→15:58)
[2020-09-02] MEDS: ASPIRIN EC 81 MG TABLET PO SCH (08:36)
[2020-09-02] MEDS: PANTOPRAZOLE 40 MG TABLET PO SCH (08:36)
[2020-09-02] MEDS: DOCUSATE SODIUM 100 MG CAPSULE PO SCH (08:36)
[2020-09-02] MEDS: ALFUZOSIN 10 MG TABLET PO SCH (08:36)
[2020-09-02] MEDS: cloNIDine 0.1 MG TABLET PO SCH ×2 (08:36→15:58)
[2020-09-02] MEDS: TICAGRELOR 90 MG TABLET PO SCH (08:36)
[2020-09-02] MEDS: MENTHOL/ZINC OXIDE OINT 71 GM JAR TOP SCH (09:38)
[2020-09-02] MEDS: INSULIN GLARGINE 100 UNIT/ML SUBCUT SCH (09:38)
[2020-09-02] MEDS: SKIN HEALING OINT (AQUAPHOR) 50 GM TUBE TOP SCH (09:38)
[2020-09-02 16:12] VITALS: BP 125/78
== END 2020-09-02 16:08 | DRG 70 ==
LOC: EDUNIT# → EDBD → N.ED 13:37 → N.EDINP 13:37 → N.TELEN 20:00
PROVIDERS: ADMIT Family Medicine; ATTEND Family Medicine

== ENCOUNTER 2020-09-05 10:56 | Inpatient (IN) ==
[2020-09-05] MEDS ORDERED: SODIUM CHLORIDE 0.9% 1,000 ML IV STA (11:17)
[2020-09-05 11:48] LABS: Basophils # 0.1 10*3/uL (0.0-0.2); Basophils % 0.2 % (0.0-0.8); Hematocrit 23.6 VOL% (42.0-52.0); Hemoglobin 7.6 GM/DL (14.0-18.0); Immature Granulocytes Absolute 0.21 #; Lymphocytes # 1.7 10*3/uL (1.4-4.0); Lymphocytes % 8.1 % (21.2-54.2); Mean Corpuscular HGB Conc 32.2 GM/DL (32-36); Mean Corpuscular Volume 84.9 FL (87-102); Monocytes % 6.8 % (1.7-12.7); Neutrophils % 83.9 % (38.7-73.9); Platelet Count 466 T/CUMM (130-400); Red Blood Count 2.78 MC/CUMM (3.8-5.5); White Blood Count 21.3 T/CUMM (4-12)
[2020-09-05 11:55] LABS: Albumin 2.4 G/DL (3.4-5.0); Bilirubin,Total 0.5 MG/DL (0.2-1.0); Calcium 8.5 MG/DL (8.5-10.1); Osmolality,Calculated 289.1 MOS/KG (273-304); Potassium 4.1 MMOL/L (3.5-5.1); Total Protein 6.8 G/DL (6.4-8.2)
[2020-09-05] MEDS ORDERED: cefTRIAXone 2,000 MG in SODIUM CHLORIDE 0.9% 100 ML IV ONE (11:55)
[2020-09-05 11:57] LABS: INR 1.1; PT Patient Result 12.2 SECS (10.5-12.0); Partial Thromboplastin Time 29.1 SECS (23.9-33.8)
[2020-09-05] MEDS ORDERED: cefTRIAXone 1,000 MG VIAL ONE (12:00)
[2020-09-05 12:40] LABS: RBC,Urine 554 /HPF (0-4)
[2020-09-05 12:43] LABS: Band Neutrophils 21 % (0-10); Lymphocytes 7 % (20-55); Nucleated Red Blood Cells 1 (0-5); Segmented Neutrophils 67 % (50-85); Total Cells Counted 100
[2020-09-05 12:44] LABS: Platelet Estimate Increased
[2020-09-05 12:45] LABS: Anisocytosis Slight; Atypical Lymphocytes Few; Dohle Bodies 2+; Microcytosis Slight; Toxic Granulation 1+
[2020-09-05 12:46] LABS: Urine Appearance Turbid (Clear); Urine Color Amber (Yellow)
[2020-09-05 12:47] LABS: Bilirubin,Urine Negative (Negative); Blood, Urine Large mg/dL (Negative); Glucose,Urine (UA) Negative (Negative); Ketones,Urine 25 mg/dL (Negative); Nitrite,Urine Negative (Negative); Protein,Urine 100 MG/DL; Urine Urobilinogen 0.2 EU/DL (0.2-1.0)
[2020-09-05] MEDS ORDERED: ACETAMINOPHEN 650 MG SUPP RECTAL STA (13:02)
[2020-09-05] MEDS ORDERED: ENOXAPARIN 100 MG/ML SYRINGE SUBCUT STA (13:05)
[2020-09-05] MEDS ORDERED: ONDANSETRON 4 MG/2 ML VIAL IV PRN (13:29)
[2020-09-05] MEDS ORDERED: SODIUM CHLORIDE 0.45% 1,000 ML IV SCH (13:30)
[2020-09-05] MEDS ORDERED: NITROGLYCERIN SL 0.4 MG TABLET SL PRN (13:33)
[2020-09-05] MEDS ORDERED: ENOXAPARIN 100 MG/ML SYRINGE SUBCUT SCH (14:00)
[2020-09-05] MEDS ORDERED: ISOSORBIDE DINITRATE 20 MG TABLET PO SCH (15:00)
[2020-09-05] MEDS ORDERED: cefTRIAXone 1,000 MG in SODIUM CHLORIDE 0.9% 100 ML IV SCH (15:26)
[2020-09-05] MEDS ORDERED: DEXTROSE 50% 25 GM/50 ML VIAL IV PRN (15:59)
[2020-09-05] MEDS ORDERED: TICAGRELOR 90 MG TABLET PO SCH (21:00)
[2020-09-05] MEDS ORDERED: ATORVASTATIN 80 MG TABLET PO SCH (21:00)
[2020-09-05] MEDS ORDERED: carvediloL 25 MG TABLET PO SCH (21:00)
[2020-09-05] MEDS ORDERED: MENTHOL/ZINC OXIDE OINT 71 GM JAR TOP SCH (21:00)
[2020-09-05] MEDS ORDERED: DOCUSATE SODIUM 100 MG CAPSULE PO SCH (21:00)
[2020-09-05] MEDS ORDERED: TAMSULOSIN 0.4 MG CAPSULE PO SCH (21:00)
[2020-09-06 02:30] VITALS: BP 116/51
[2020-09-06] MEDS ORDERED: ASPIRIN CHEW 81 MG TABLET PO SCH (09:00)
[2020-09-06] MEDS ORDERED: PANTOPRAZOLE 40 MG TABLET PO SCH (09:00)
[2020-09-06] MEDS ORDERED: SKIN HEALING OINT (AQUAPHOR) 50 GM TUBE TOP SCH (09:00)
[2020-09-06] MEDS ORDERED: cefTRIAXone 1,000 MG in SODIUM CHLORIDE 0.9% 100 ML IV SCH (12:00)
== END 2020-09-06 01:50 | disposition expired ==
LOC: N.ED 10:56 → N.EDINP 13:29 → N.TELEN 14:02
PROVIDERS: ADMIT Family Medicine; ATTEND Family Medicine